=== PATIENT | male | born 1950 | race Caucasian/White ===

== ENCOUNTER 2018-02-21 09:35 | Inpatient (IN) | payer OTHER ==
[2018-02-21 10:31] LABS: ADD MAN DIFF? NO
[2018-02-21 10:32] LABS: WHITE BLOOD COUNT 24.3 10^3/ul (4.8-10.8)
[2018-02-21 10:32] LABS: ABNORMAL IP MESSAGE 1; BASOPHILS % 0.2 % (0.0-2.0); EOSINOPHILS # 0.1 10^3/ul (0.0-0.5); EOSINOPHILS % 0.2 % (0.0-7.0); HEMATOCRIT 23.1 % (42.0-52.0); HEMOGLOBIN 7.6 g/dl (14.0-18.0); LYMPHOCYTES # 0.7 10^3/ul (0.8-2.9); LYMPHOCYTES % 2.8 % (15.0-51.0); MEAN CORPUSCULAR HEMOGLOBIN 27.7 pg (29.0-33.0); MEAN CORPUSCULAR HGB CONC 32.9 g/dl (32.0-37.0); MEAN CORPUSCULAR VOLUME 84.3 fl (82.0-101.0); MEAN PLATELET VOLUME 11.5 fl (7.4-10.4); MONOCYTE # 1.1 10^3/ul (0.3-0.9); MONOCYTES % 4.4 % (0.0-11.0); NEUTROPHIL # 21.9 10^3/ul (1.6-7.5); NEUTROPHILS % 89.9 % (39.0-77.0); PLATELET COUNT 303 10^3/UL (140-415); POSITIVE DIFF @See below; RED BLOOD COUNT 2.74 10^6/ul (4.70-6.10); RED CELL DISTRIBUTION WIDTH 15.1 % (11.5-14.5)
[2018-02-21 10:36] LABS: LACTIC ACID 1.6 mmol/L (0.5-2.0)
[2018-02-21 10:39] LABS: ALANINE AMINOTRANSFERASE 37 IU/L (13-69); ALBUMIN 2.8 g/dl (3.3-4.9); ALBUMIN/GLOBULIN RATIO 0.93; ALKALINE PHOSPHATASE 301 IU/L (42-121); ANION GAP 21 (8-16); ASPARTATE AMINO TRANSFERASE 26 IU/L (15-46); BLOOD UREA NITROGEN 51 mg/dl (7-20); CALCIUM 8.8 mg/dl (8.4-10.2); CARBON DIOXIDE 16 mmol/L (21-31); CHLORIDE 92 mmol/L (97-110); CREATININE 2.81 mg/dl (0.61-1.24); POTASSIUM 5.5 mmol/L (3.5-5.1); SODIUM 123 mmol/L (135-144); TOTAL PROTEIN 5.8 g/dl (6.1-8.1)
[2018-02-21 10:49] LABS: GLUCOSE 762 mg/dl (70-220)
[2018-02-21 10:53] LABS: INR 1.42; PROTIME 17.6 Sec (11.9-14.9); PT RATIO 1.4
[2018-02-21] MEDS: INSULIN HUMAN REGULAR 100 UNIT in SOD CHLORIDE 0.9% 99 ML IV (11:20)
[2018-02-21] MEDS: ACCU-CHEK XX ×24 (11:30→23:30)
[2018-02-21] MEDS: SODIUM CHLORIDE 0.9% 1L BAG IV* (11:53)
[2018-02-21] MEDS: CEFEPIME 1GM/50 ML (PMX) 50 ML IVPB (11:54)
[2018-02-21] MEDS: SOD CHLORIDE 0.9% 1,000 ML IV (12:43)
[2018-02-21] MEDS: VANCOMYCIN 1 GM (PMX) 250 ML IVPB (12:44)
[2018-02-21 12:46] LABS: AADO2 Arterial 35.8 mmHg (7.0-24.0); Arterial Base Excess -8.2 mmol/L (-3.0-3); Arterial Blood Gas Oxygen Sat 93.6 mmHG (95.0-98.0); Arterial COHb 0.1 % (0.0-3.0); Arterial Fraction of Oxyhgb 93.1 % (93.0-99.0); Arterial HCO3 17.3 mmol/L (22.0-26.0); Arterial MetHb 0.4 % (0.0-1.5); Arterial Total Hemglobin 8.7 g/dl (12.0-18.0); Arterial pCO2 35.2 mmhg (35-45); MODE ROOM AIR; Site Right Brachial
[2018-02-21] MEDS ORDERED: DEXTROSE 50% 50 ML SYRINGE IV ×2 (13:00)
[2018-02-21] MEDS ORDERED: ACETAMINOPHEN 325 MG TAB PO (13:00)
[2018-02-21] MEDS ORDERED: HYPOGLYCEMIA TREATMENT XX (13:00)
[2018-02-21] MEDS ORDERED: ALBUTEROL 0.083% (NEB) 2.5 MG/3 ML AMP NEB (13:00)
[2018-02-21] MEDS ORDERED: MAGNESIUM HYDROXIDE 30ML CUP PO (13:00)
[2018-02-21] MEDS ORDERED: HYDROCODONE/APAP (5/325) TAB PO (13:00)
[2018-02-21] MEDS: LACTATED RINGER'S 1,000 ML IV (13:43)
[2018-02-21 14:22] LABS: ADD UMIC YES; UR ASCORBIC ACID NEGATIVE (NEGATIVE); UR BACTERIA FEW /HPF (NONE SEEN); UR BILIRUBIN (Dip) NEGATIVE (NEGATIVE); UR BLOOD (Dip) 3+ mg/dL (NEGATIVE); UR CLARITY CLOUDY (CLEAR); UR COLOR YELLOW (YELLOW); UR GLUCOSE (Dip) 3+ mg/dL (NEGATIVE); UR KETONES (Dip) NEGATIVE (NEGATIVE); UR LEUKOCYTE ESTERASE (Dip) 3+ Leu/ul (NEGATIVE); UR NITRITE (Dip) NEGATIVE (NEGATIVE); UR RBC 4 /HPF (0-5); UR SPECIFIC GRAVITY (Dip) 1.018 (1.003-1.030); UR TOTAL PROTEIN (Dip) 1+ mg/dl (NEGATIVE); UR UROBILINOGEN (Dip) NEGATIVE (NEGATIVE); UR WBC > 182 /HPF (0-5)
[2018-02-21 14:27] LABS: HEMOGLOBIN A1C 9.2 % (0-5.9)
[2018-02-21 14:33] LABS: LACTIC ACID 1.5 mmol/L (0.5-2.0)
[2018-02-21 14:34] LABS: ANION GAP 17 (8-16); BLOOD UREA NITROGEN 54 mg/dl (7-20); CALCIUM 8.8 mg/dl (8.4-10.2); CARBON DIOXIDE 16 mmol/L (21-31); CHLORIDE 95 mmol/L (97-110); CREATININE 2.92 mg/dl (0.61-1.24); POTASSIUM 5.1 mmol/L (3.5-5.1); SODIUM 123 mmol/L (135-144)
[2018-02-21 14:43] LABS: GLUCOSE 681 mg/dl (70-220)
[2018-02-21 14:51] LABS: C-REACTIVE PROTEIN 24.3 mg/dl (0.0-0.9)
[2018-02-21 16:27] LABS: ERYTHROCYTE SEDIMENTATION RATE 140 mm/Hr (0-20)
[2018-02-21] MEDS: CEFTRIAXONE 1 GM/50 ML (PMX) 50 ML IVPB (19:09)
[2018-02-21 19:15] LABS: IRON 28 ug/dl (35-150)
[2018-02-21 19:17] LABS: ANION GAP 15 (8-16); BLOOD UREA NITROGEN 52 mg/dl (7-20); CALCIUM 8.7 mg/dl (8.4-10.2); CARBON DIOXIDE 16 mmol/L (21-31); CHLORIDE 97 mmol/L (97-110); CREATININE 2.97 mg/dl (0.61-1.24); POTASSIUM 4.6 mmol/L (3.5-5.1); SODIUM 123 mmol/L (135-144)
[2018-02-21 19:23] LABS: GLUCOSE 521 mg/dl (70-220)
[2018-02-21 19:24] LABS: % IRON SATURATION 16 % SAT (22-52); TOTAL IRON BINDING CAPACITY 174 ug/dl (241-421)
[2018-02-21] MEDS ORDERED: FAMOTIDINE 20 MG TAB PO (21:00)
[2018-02-21] MEDS: GUAIFENESIN LA 600 MG TABSR PO (21:18)
[2018-02-21] MEDS: ATORVASTATIN 10 MG TAB PO (21:25)
[2018-02-21 22:38] LABS: ANION GAP 15 (8-16); BLOOD UREA NITROGEN 52 mg/dl (7-20); CALCIUM 8.8 mg/dl (8.4-10.2); CARBON DIOXIDE 17 mmol/L (21-31); CHLORIDE 97 mmol/L (97-110); CREATININE 2.95 mg/dl (0.61-1.24); GLUCOSE 372 mg/dl (70-220); POTASSIUM 4.3 mmol/L (3.5-5.1); SODIUM 125 mmol/L (135-144)
[2018-02-22] MEDS: INSULIN HUMAN REGULAR 100 UNIT in SOD CHLORIDE 0.9% 99 ML IV ×5 (00:32→20:19)
[2018-02-22] MEDS: ACCU-CHEK XX ×33 (00:33→23:12)
[2018-02-22] MEDS: SOD CHLORIDE 0.9% 1,000 ML IV ×3 (01:55→15:35)
[2018-02-22] MEDS: DEXTROSE 5%-0.9% NACL 1,000 ML IV ×4 (02:00→18:11)
[2018-02-22 02:45] LABS: ANION GAP 16 (8-16); BLOOD UREA NITROGEN 54 mg/dl (7-20); CALCIUM 8.9 mg/dl (8.4-10.2); CARBON DIOXIDE 17 mmol/L (21-31); CHLORIDE 101 mmol/L (97-110); CREATININE 2.93 mg/dl (0.61-1.24); GLUCOSE 200 mg/dl (70-220); POTASSIUM 4.3 mmol/L (3.5-5.1); SODIUM 130 mmol/L (135-144)
[2018-02-22 05:31] LABS: ADD MAN DIFF? NO
[2018-02-22 05:35] LABS: ABNORMAL IP MESSAGE 1; BASOPHILS % 0.2 % (0.0-2.0); EOSINOPHILS # 0.1 10^3/ul (0.0-0.5); EOSINOPHILS % 0.3 % (0.0-7.0); HEMATOCRIT 20.5 % (42.0-52.0); LYMPHOCYTES % 4.3 % (15.0-51.0); MEAN CORPUSCULAR HEMOGLOBIN 27.5 pg (29.0-33.0); MEAN CORPUSCULAR HGB CONC 33.2 g/dl (32.0-37.0); MEAN PLATELET VOLUME 10.8 fl (7.4-10.4); MONOCYTE # 1.1 10^3/ul (0.3-0.9); MONOCYTES % 4.8 % (0.0-11.0); NEUTROPHIL # 20.4 10^3/ul (1.6-7.5); NEUTROPHILS % 88.7 % (39.0-77.0); PLATELET COUNT 279 10^3/UL (140-415); POSITIVE DIFF @See below; RED BLOOD COUNT 2.47 10^6/ul (4.70-6.10); RED CELL DISTRIBUTION WIDTH 14.7 % (11.5-14.5)
[2018-02-22] MEDS: SOD CHLORIDE 0.9% 500 ML IV (06:35)
[2018-02-22 06:46] LABS: HEMOGLOBIN 6.8 g/dl (14.0-18.0)
[2018-02-22 06:55] LABS: ANION GAP 14 (8-16); BLOOD UREA NITROGEN 52 mg/dl (7-20); CALCIUM 8.8 mg/dl (8.4-10.2); CARBON DIOXIDE 17 mmol/L (21-31); CHLORIDE 105 mmol/L (97-110); CREATININE 2.98 mg/dl (0.61-1.24); GLUCOSE 156 mg/dl (70-220); POTASSIUM 4.2 mmol/L (3.5-5.1); SODIUM 132 mmol/L (135-144)
[2018-02-22] MEDS: PANTOPRAZOLE (EC) 40 MG TAB PO (07:27)
[2018-02-22 08:34] LABS: ADD MAN DIFF? NO
[2018-02-22 08:39] LABS: ABNORMAL IP MESSAGE 1; BASOPHILS % 0.2 % (0.0-2.0); EOSINOPHILS # 0.1 10^3/ul (0.0-0.5); EOSINOPHILS % 0.4 % (0.0-7.0); HEMATOCRIT 21.6 % (42.0-52.0); HEMOGLOBIN 7.3 g/dl (14.0-18.0); LYMPHOCYTES % 4.1 % (15.0-51.0); MEAN CORPUSCULAR HEMOGLOBIN 28.3 pg (29.0-33.0); MEAN CORPUSCULAR HGB CONC 33.8 g/dl (32.0-37.0); MEAN CORPUSCULAR VOLUME 83.7 fl (82.0-101.0); MEAN PLATELET VOLUME 10.6 fl (7.4-10.4); MONOCYTE # 1.3 10^3/ul (0.3-0.9); MONOCYTES % 5.2 % (0.0-11.0); NEUTROPHIL # 21.7 10^3/ul (1.6-7.5); PLATELET COUNT 289 10^3/UL (140-415); POSITIVE DIFF @See below; RED BLOOD COUNT 2.58 10^6/ul (4.70-6.10)
[2018-02-22 08:39] LABS: WHITE BLOOD COUNT 24.4 10^3/ul (4.8-10.8)
[2018-02-22] MEDS ORDERED: DEXTROSE 50% 50 ML SYRINGE IV ×6 (09:30→16:00)
[2018-02-22] MEDS: GUAIFENESIN LA 600 MG TABSR PO ×2 (10:49→20:20)
[2018-02-22] MEDS ORDERED: PENDING SANTYL ORDER FOR WOUND CARE XX (11:00)
[2018-02-22] MEDS ORDERED: COLLAGENASE 30 GM TUBE TOP (11:30)
[2018-02-22] MEDS: ONDANSETRON 4 MG INJ IV (12:10)
[2018-02-22] MEDS ORDERED: GLUCOSE GEL 15 GRAM TUBE BUCCAL (12:30)
[2018-02-22] MEDS ORDERED: GLUCAGON 1 MG INJ IM (12:30)
[2018-02-22] MEDS ORDERED: GLUCOSE GEL 15 GRAM TUBE PO ×2 (12:30)
[2018-02-22 13:07] LABS: ANION GAP 22 (8-16); BLOOD UREA NITROGEN 52 mg/dl (7-20); CALCIUM 8.9 mg/dl (8.4-10.2); CARBON DIOXIDE 13 mmol/L (21-31); CHLORIDE 103 mmol/L (97-110); CREATININE 3.23 mg/dl (0.61-1.24); GLUCOSE 198 mg/dl (70-220); POTASSIUM 4.7 mmol/L (3.5-5.1); SODIUM 133 mmol/L (135-144)
[2018-02-22] MEDS: COLLAGENASE 30 GM TUBE TOP (13:55)
[2018-02-22] MEDS: INSULIN GLARGINE [LANtus] 3 ML PEN SC (13:56)
[2018-02-22 14:07] LABS: SODIUM,URINE RANDOM 51 mmol/L (30-90)
[2018-02-22 14:07] LABS: POTASSIUM,URINE RANDOM 34.5 mmol/L (25-125)
[2018-02-22 14:32] LABS: OSMOLALITY,URINE 331 mOsm/kg (250-1200)
[2018-02-22] MEDS ORDERED: INSULIN ASPART [NOVOLOG] 3 ML PEN SC (17:35)
[2018-02-22] MEDS ORDERED: SOD CHLORIDE 0.45% 1,000 ML IV (19:00)
[2018-02-22 19:12] LABS: ANION GAP 17 (8-16); BLOOD UREA NITROGEN 55 mg/dl (7-20); CALCIUM 8.7 mg/dl (8.4-10.2); CARBON DIOXIDE 14 mmol/L (21-31); CHLORIDE 105 mmol/L (97-110); GLUCOSE 213 mg/dl (70-220); POTASSIUM 4.8 mmol/L (3.5-5.1); SODIUM 131 mmol/L (135-144)
[2018-02-22] MEDS: CEFTRIAXONE 1 GM/50 ML (PMX) 50 ML IVPB (19:27)
[2018-02-22] MEDS: DEXTROSE 5%-0.45% NACL 1,000 ML IV (20:14)
[2018-02-22] MEDS: CITRIC ACID/SODIUM CITRATE 15 ML CUP PO (20:19)
[2018-02-22] MEDS: ATORVASTATIN 10 MG TAB PO (20:20)
[2018-02-22 22:22] LABS: ANION GAP 14 (8-16); BLOOD UREA NITROGEN 55 mg/dl (7-20); CALCIUM 8.9 mg/dl (8.4-10.2); CARBON DIOXIDE 15 mmol/L (21-31); CHLORIDE 106 mmol/L (97-110); CREATININE 3.54 mg/dl (0.61-1.24); GLUCOSE 218 mg/dl (70-220); POTASSIUM 4.3 mmol/L (3.5-5.1); SODIUM 131 mmol/L (135-144)
[2018-02-23] MEDS: ACCU-CHEK XX ×11 (01:10→10:18)
[2018-02-23] MEDS ORDERED: ACCU-CHEK XX (02:00)
[2018-02-23 02:37] LABS: ANION GAP 22 (8-16); BLOOD UREA NITROGEN 55 mg/dl (7-20); CALCIUM 8.9 mg/dl (8.4-10.2); CARBON DIOXIDE 16 mmol/L (21-31); CHLORIDE 104 mmol/L (97-110); CREATININE 3.75 mg/dl (0.61-1.24); GLUCOSE 149 mg/dl (70-220); POTASSIUM 4.5 mmol/L (3.5-5.1); SODIUM 137 mmol/L (135-144)
[2018-02-23] MEDS: INSULIN HUMAN REGULAR 100 UNIT in SOD CHLORIDE 0.9% 99 ML IV ×3 (03:16→09:00)
[2018-02-23] MEDS: PANTOPRAZOLE (EC) 40 MG TAB PO (06:09)
[2018-02-23] MEDS: DEXTROSE 5%-0.45% NACL 1,000 ML IV (06:10)
[2018-02-23 06:22] LABS: ADD MAN DIFF? NO
[2018-02-23 06:36] LABS: WHITE BLOOD COUNT 21.8 10^3/ul (4.8-10.8)
[2018-02-23 06:36] LABS: ABNORMAL IP MESSAGE 1; BASOPHILS % 0.1 % (0.0-2.0); EOSINOPHILS # 0.1 10^3/ul (0.0-0.5); EOSINOPHILS % 0.2 % (0.0-7.0); HEMATOCRIT 20.1 % (42.0-52.0); LYMPHOCYTES % 4.7 % (15.0-51.0); MEAN CORPUSCULAR HEMOGLOBIN 27.9 pg (29.0-33.0); MEAN CORPUSCULAR HGB CONC 32.3 g/dl (32.0-37.0); MEAN CORPUSCULAR VOLUME 86.3 fl (82.0-101.0); MEAN PLATELET VOLUME 11.5 fl (7.4-10.4); MONOCYTE # 1.2 10^3/ul (0.3-0.9); MONOCYTES % 5.6 % (0.0-11.0); NEUTROPHIL # 18.6 10^3/ul (1.6-7.5); NEUTROPHILS % 85.6 % (39.0-77.0); PLATELET COUNT 290 10^3/UL (140-415); POSITIVE DIFF @See below; RED BLOOD COUNT 2.33 10^6/ul (4.70-6.10); RED CELL DISTRIBUTION WIDTH 15.7 % (11.5-14.5)
[2018-02-23 06:50] LABS: ANION GAP 14 (8-16); BLOOD UREA NITROGEN 57 mg/dl (7-20); CALCIUM 9.2 mg/dl (8.4-10.2); CARBON DIOXIDE 17 mmol/L (21-31); CHLORIDE 107 mmol/L (97-110); CREATININE 3.68 mg/dl (0.61-1.24); GLUCOSE 112 mg/dl (70-220); HEMOGLOBIN 6.5 g/dl (14.0-18.0); POTASSIUM 4.4 mmol/L (3.5-5.1); SODIUM 134 mmol/L (135-144)
[2018-02-23 07:01] LABS: PHOSPHORUS 2.6 mg/dl (2.5-4.9)
[2018-02-23] MEDS: GUAIFENESIN LA 600 MG TABSR PO ×2 (09:00→20:28)
[2018-02-23] MEDS: CITRIC ACID/SODIUM CITRATE 15 ML CUP PO ×3 (09:00→20:29)
[2018-02-23] MEDS: COLLAGENASE 30 GM TUBE TOP (09:00)
[2018-02-23 09:43] LABS: ANION GAP 14 (8-16); BLOOD UREA NITROGEN 56 mg/dl (7-20); CALCIUM 8.9 mg/dl (8.4-10.2); CARBON DIOXIDE 17 mmol/L (21-31); CHLORIDE 108 mmol/L (97-110); CREATININE 3.84 mg/dl (0.61-1.24); GLUCOSE 64 mg/dl (70-220); POTASSIUM 4.3 mmol/L (3.5-5.1); SODIUM 135 mmol/L (135-144)
[2018-02-23 09:47] LABS: ANISOCYTOSIS 2+ (0-0); BAND NEUTROPHILS #M 1.5 10^3/ul (0.0-0.6); BAND NEUTROPHILS % (M) 7 % (0-4); BASOPHIL #M 0.8 10^3/ul (0.0-0.0); BASOPHILS % (M) 4 % (0-2); LYMPHOCYTES #M 0.8 10^3/ul (0.8-2.9); LYMPHOCYTES % (M) 4 % (15-51); MICROCYTOSIS 1+ (0-0); MONOCYTE #M 0.2 10^3/ul (0.3-0.9); MONOCYTES % (M) 1 % (0-11); PLATELET ESTIMATE NORMAL; POIKILOCYTOSIS 2+ (0-0); POLYCHROMASIA 3+ (0-0); SEG NEUT #M 18.6 10^3/ul (1.6-7.5); SEGMENTED NEUTROPHILS (M) % 84 % (39-77); SMUDGE%M 6 % (0-0)
[2018-02-23] MEDS: SOD CHLORIDE 0.9% 1,000 ML IV (11:19)
[2018-02-23] MEDS: INSULIN GLARGINE [LANtus] 3 ML PEN SC (11:30)
[2018-02-23] MEDS: INSULIN ASPART [NOVOLOG] 3 ML PEN SC ×5 (11:30→20:31)
[2018-02-23 11:45] LABS: ADD MAN DIFF? NO
[2018-02-23 11:49] LABS: WHITE BLOOD COUNT 20.6 10^3/ul (4.8-10.8)
[2018-02-23 11:49] LABS: ABNORMAL IP MESSAGE 1; BASOPHILS % 0.1 % (0.0-2.0); EOSINOPHILS # 0.1 10^3/ul (0.0-0.5); EOSINOPHILS % 0.3 % (0.0-7.0); HEMATOCRIT 19.4 % (42.0-52.0); LYMPHOCYTES # 1.1 10^3/ul (0.8-2.9); LYMPHOCYTES % 5.2 % (15.0-51.0); MEAN CORPUSCULAR HEMOGLOBIN 28.1 pg (29.0-33.0); MEAN CORPUSCULAR HGB CONC 32.5 g/dl (32.0-37.0); MEAN CORPUSCULAR VOLUME 86.6 fl (82.0-101.0); MEAN PLATELET VOLUME 10.9 fl (7.4-10.4); MONOCYTE # 1.7 10^3/ul (0.3-0.9); MONOCYTES % 8.4 % (0.0-11.0); NEUTROPHIL # 16.8 10^3/ul (1.6-7.5); NEUTROPHILS % 81.2 % (39.0-77.0); PLATELET COUNT 289 10^3/UL (140-415); POSITIVE DIFF @See below; RED BLOOD COUNT 2.24 10^6/ul (4.70-6.10); RED CELL DISTRIBUTION WIDTH 15.8 % (11.5-14.5)
[2018-02-23 11:58] LABS: HEMOGLOBIN 6.3 g/dl (14.0-18.0)
[2018-02-23 12:43] LABS: ANION GAP 14 (8-16); BLOOD UREA NITROGEN 58 mg/dl (7-20); CALCIUM 9.1 mg/dl (8.4-10.2); CARBON DIOXIDE 17 mmol/L (21-31); CHLORIDE 107 mmol/L (97-110); CREATININE 3.91 mg/dl (0.61-1.24); GLUCOSE 81 mg/dl (70-220); POTASSIUM 4.8 mmol/L (3.5-5.1); SODIUM 133 mmol/L (135-144)
[2018-02-23] MEDS: MEROPENEM 1 GM/50ML(PMX) 50 ML IVPB ×2 (13:00→21:18)
[2018-02-23] MEDS: SOD CHLORIDE 0.9% 250 ML IV* (15:30)
[2018-02-23 15:47] LABS: IMMEDIATE SPIN CROSSMATCH 1 2
[2018-02-23] MEDS: LACTATED RINGER'S 1,000 ML IV (16:00)
[2018-02-23 16:26] LABS: CREATININE, RANDOM URINE 81 mg/dL (20-370); MICROALBUMIN/CREATININE RATIO 123 (<30)
[2018-02-23 17:27] LABS: ANION GAP 16 (8-16); BLOOD UREA NITROGEN 61 mg/dl (7-20); CARBON DIOXIDE 16 mmol/L (21-31); CHLORIDE 105 mmol/L (97-110); CREATININE 4.08 mg/dl (0.61-1.24); GLUCOSE 186 mg/dl (70-220); POTASSIUM 5.3 mmol/L (3.5-5.1); SODIUM 132 mmol/L (135-144)
[2018-02-23 17:56] LABS: HEPATITIS B SURFACE ANTIGEN NEGATIVE (NEGATIVE)
[2018-02-23 18:13] LABS: HEPATITIS C VIRAL ANTIBODY NEGATIVE (NEGATIVE)
[2018-02-23] MEDS: SOD FERRIC GLUC COMPLX 125 MG in SOD CHLORIDE 0.9% 100 ML IVPB (18:29)
[2018-02-23] MEDS: ATORVASTATIN 10 MG TAB PO (20:28)
[2018-02-24] MEDS: morphine 2 MG INJ IV (00:43)
[2018-02-24 01:59] LABS: ANION GAP 13 (8-16); BLOOD UREA NITROGEN 63 mg/dl (7-20); CARBON DIOXIDE 18 mmol/L (21-31); CHLORIDE 107 mmol/L (97-110); CREATININE 3.76 mg/dl (0.61-1.24); GLUCOSE 193 mg/dl (70-220); POTASSIUM 5.2 mmol/L (3.5-5.1); SODIUM 133 mmol/L (135-144)
[2018-02-24] MEDS: ACCU-CHEK XX ×2 (03:00→19:55)
[2018-02-24] MEDS: PANTOPRAZOLE (EC) 40 MG TAB PO (06:32)
[2018-02-24 07:03] LABS: ADD MAN DIFF? NO
[2018-02-24 07:15] LABS: BASOPHILS % 0.2 % (0.0-2.0); EOSINOPHILS # 0.1 10^3/ul (0.0-0.5); EOSINOPHILS % 0.6 % (0.0-7.0); HEMATOCRIT 24.8 % (42.0-52.0); HEMOGLOBIN 8.2 g/dl (14.0-18.0); LYMPHOCYTES # 1.2 10^3/ul (0.8-2.9); LYMPHOCYTES % 6.3 % (15.0-51.0); MEAN CORPUSCULAR HGB CONC 33.1 g/dl (32.0-37.0); MEAN CORPUSCULAR VOLUME 84.6 fl (82.0-101.0); MONOCYTE # 1.3 10^3/ul (0.3-0.9); MONOCYTES % 6.9 % (0.0-11.0); NEUTROPHIL # 15.8 10^3/ul (1.6-7.5); NEUTROPHILS % 81.1 % (39.0-77.0); PLATELET COUNT 347 10^3/UL (140-415); RED BLOOD COUNT 2.93 10^6/ul (4.70-6.10); RED CELL DISTRIBUTION WIDTH 15.4 % (11.5-14.5)
[2018-02-24 07:15] LABS: WHITE BLOOD COUNT 19.4 10^3/ul (4.8-10.8)
[2018-02-24 07:40] LABS: ANION GAP 15 (8-16); BLOOD UREA NITROGEN 65 mg/dl (7-20); CARBON DIOXIDE 19 mmol/L (21-31); CHLORIDE 105 mmol/L (97-110); CREATININE 3.65 mg/dl (0.61-1.24); GLUCOSE 178 mg/dl (70-220); POTASSIUM 5.3 mmol/L (3.5-5.1); SODIUM 134 mmol/L (135-144)
[2018-02-24 07:41] LABS: MAGNESIUM 2.1 mg/dl (1.7-2.5)
[2018-02-24 07:42] LABS: PHOSPHORUS 4.5 mg/dl (2.5-4.9)
[2018-02-24] MEDS: GUAIFENESIN LA 600 MG TABSR PO ×2 (08:17→20:42)
[2018-02-24] MEDS: CITRIC ACID/SODIUM CITRATE 15 ML CUP PO ×3 (08:17→20:42)
[2018-02-24] MEDS: INSULIN ASPART [NOVOLOG] 3 ML PEN SC ×7 (08:20→20:41)
[2018-02-24] MEDS: LACTATED RINGER'S 1,000 ML IV ×2 (08:21→12:00)
[2018-02-24] MEDS: MEROPENEM 1 GM/50ML(PMX) 50 ML IVPB ×2 (08:21→20:55)
[2018-02-24] MEDS: INSULIN GLARGINE [LANtus] 3 ML PEN SC (08:25)
[2018-02-24] MEDS: COLLAGENASE 30 GM TUBE TOP (09:00)
[2018-02-24] MEDS: NA POLYST SULFON 15 GM/60 ML BTL PO (12:21)
[2018-02-24 15:51] LABS: CREATININE, RANDOM URINE 405 mg/dL (20-370); MICROALBUMIN 31.3 mg/dL; MICROALBUMIN/CREATININE RATIO 77 (<30)
[2018-02-24] MEDS: SOD FERRIC GLUC COMPLX 125 MG in SOD CHLORIDE 0.9% 100 ML IVPB (16:31)
[2018-02-24] MEDS: LACTATED RINGER'S 500 ML IV (18:58)
[2018-02-24] MEDS: ATORVASTATIN 10 MG TAB PO (20:42)
[2018-02-25] MEDS: morphine 2 MG INJ IV (01:11)
[2018-02-25] MEDS: LACTATED RINGER'S 1,000 ML IV ×3 (01:37→12:33)
[2018-02-25] MEDS: ACCU-CHEK XX ×7 (04:38→19:55)
[2018-02-25] MEDS: HYDROCODONE/APAP (5/325) TAB PO (04:54)
[2018-02-25] MEDS: PANTOPRAZOLE (EC) 40 MG TAB PO (06:36)
[2018-02-25 07:48] LABS: ADD MAN DIFF? NO
[2018-02-25 07:51] LABS: BASOPHILS % 0.2 % (0.0-2.0); EOSINOPHILS # 0.2 10^3/ul (0.0-0.5); EOSINOPHILS % 0.8 % (0.0-7.0); HEMATOCRIT 24.5 % (42.0-52.0); HEMOGLOBIN 8.1 g/dl (14.0-18.0); LYMPHOCYTES # 1.3 10^3/ul (0.8-2.9); LYMPHOCYTES % 6.7 % (15.0-51.0); MEAN CORPUSCULAR HEMOGLOBIN 28.8 pg (29.0-33.0); MEAN CORPUSCULAR HGB CONC 33.1 g/dl (32.0-37.0); MEAN CORPUSCULAR VOLUME 87.2 fl (82.0-101.0); MEAN PLATELET VOLUME 10.6 fl (7.4-10.4); MONOCYTE # 1.4 10^3/ul (0.3-0.9); MONOCYTES % 6.9 % (0.0-11.0); NEUTROPHIL # 16.1 10^3/ul (1.6-7.5); NEUTROPHILS % 80.9 % (39.0-77.0); PLATELET COUNT 413 10^3/UL (140-415); RED BLOOD COUNT 2.81 10^6/ul (4.70-6.10); RED CELL DISTRIBUTION WIDTH 15.8 % (11.5-14.5)
[2018-02-25 07:51] LABS: WHITE BLOOD COUNT 19.9 10^3/ul (4.8-10.8)
[2018-02-25 08:12] LABS: ANION GAP 16 (8-16); BLOOD UREA NITROGEN 63 mg/dl (7-20); CALCIUM 8.9 mg/dl (8.4-10.2); CARBON DIOXIDE 20 mmol/L (21-31); CHLORIDE 105 mmol/L (97-110); CREATININE 2.94 mg/dl (0.61-1.24); GLUCOSE 148 mg/dl (70-220); MAGNESIUM 2.1 mg/dl (1.7-2.5); POTASSIUM 4.8 mmol/L (3.5-5.1); SODIUM 136 mmol/L (135-144)
[2018-02-25] MEDS: INSULIN ASPART [NOVOLOG] 3 ML PEN SC ×7 (08:33→20:36)
[2018-02-25] MEDS: INSULIN GLARGINE [LANtus] 3 ML PEN SC (08:35)
[2018-02-25] MEDS: CITRIC ACID/SODIUM CITRATE 15 ML CUP PO ×3 (08:35→20:37)
[2018-02-25] MEDS: GUAIFENESIN LA 600 MG TABSR PO ×2 (08:36→20:37)
[2018-02-25] MEDS: COLLAGENASE 30 GM TUBE TOP (08:36)
[2018-02-25] MEDS: MEROPENEM 1 GM/50ML(PMX) 50 ML IVPB ×2 (08:37→20:37)
[2018-02-25] MEDS: SOD FERRIC GLUC COMPLX 125 MG in SOD CHLORIDE 0.9% 100 ML IVPB (17:05)
[2018-02-25] MEDS: ATORVASTATIN 10 MG TAB PO (20:37)
[2018-02-26] MEDS: ACCU-CHEK XX ×7 (02:00→19:55)
[2018-02-26] MEDS: LACTATED RINGER'S 1,000 ML IV ×3 (02:43→23:01)
[2018-02-26] MEDS: morphine 2 MG INJ IV (02:44)
[2018-02-26] MEDS: PANTOPRAZOLE (EC) 40 MG TAB PO (06:49)
[2018-02-26 07:02] LABS: ADD MAN DIFF? NO
[2018-02-26 07:14] LABS: BASOPHILS % 0.1 % (0.0-2.0); EOSINOPHILS # 0.1 10^3/ul (0.0-0.5); EOSINOPHILS % 0.6 % (0.0-7.0); HEMATOCRIT 25.8 % (42.0-52.0); HEMOGLOBIN 8.2 g/dl (14.0-18.0); LYMPHOCYTES # 1.5 10^3/ul (0.8-2.9); LYMPHOCYTES % 6.9 % (15.0-51.0); MEAN CORPUSCULAR HEMOGLOBIN 27.5 pg (29.0-33.0); MEAN CORPUSCULAR HGB CONC 31.8 g/dl (32.0-37.0); MEAN CORPUSCULAR VOLUME 86.6 fl (82.0-101.0); MEAN PLATELET VOLUME 10.4 fl (7.4-10.4); MONOCYTE # 1.4 10^3/ul (0.3-0.9); MONOCYTES % 6.4 % (0.0-11.0); NEUTROPHIL # 17.7 10^3/ul (1.6-7.5); NEUTROPHILS % 81.9 % (39.0-77.0); PLATELET COUNT 455 10^3/UL (140-415); RED BLOOD COUNT 2.98 10^6/ul (4.70-6.10); RED CELL DISTRIBUTION WIDTH 15.6 % (11.5-14.5)
[2018-02-26 07:14] LABS: WHITE BLOOD COUNT 21.7 10^3/ul (4.8-10.8)
[2018-02-26 07:29] LABS: URIC ACID 8.1 mg/dl (3.1-7.9)
[2018-02-26 07:31] LABS: ANION GAP 12 (8-16); BLOOD UREA NITROGEN 58 mg/dl (7-20); CALCIUM 8.9 mg/dl (8.4-10.2); CARBON DIOXIDE 24 mmol/L (21-31); CHLORIDE 108 mmol/L (97-110); CREATININE 2.31 mg/dl (0.61-1.24); GLUCOSE 127 mg/dl (70-220); POTASSIUM 4.8 mmol/L (3.5-5.1); SODIUM 139 mmol/L (135-144)
[2018-02-26] MEDS: GUAIFENESIN LA 600 MG TABSR PO ×2 (08:13→20:12)
[2018-02-26] MEDS: CITRIC ACID/SODIUM CITRATE 15 ML CUP PO ×3 (08:14→20:58)
[2018-02-26] MEDS: MEROPENEM 1 GM/50ML(PMX) 50 ML IVPB ×2 (08:15→20:11)
[2018-02-26] MEDS: INSULIN ASPART [NOVOLOG] 3 ML PEN SC ×7 (08:20→20:06)
[2018-02-26] MEDS: INSULIN GLARGINE [LANtus] 3 ML PEN SC (08:22)
[2018-02-26] MEDS: COLLAGENASE 30 GM TUBE TOP (08:24)
[2018-02-26] MEDS: LACTATED RINGER'S 500 ML IV (14:09)
[2018-02-26] MEDS: hydrALAzine 20 MG INJ IV (16:43)
[2018-02-26] MEDS: EPOETIN 10000 UNITS/ML (NON ESRD/NON ONCOLOGY) SC (19:03)
[2018-02-26] MEDS: ATORVASTATIN 10 MG TAB PO (20:12)
[2018-02-26] MEDS: EPOETIN ALFA 1,000 UNITS/0.1 ML VIAL SC (20:58)
[2018-02-27] MEDS: ACCU-CHEK XX ×5 (02:00→13:50)
[2018-02-27] MEDS: hydrALAzine 20 MG INJ IV (03:56)
[2018-02-27] MEDS: PANTOPRAZOLE (EC) 40 MG TAB PO (06:26)
[2018-02-27 07:27] LABS: ADD MAN DIFF? NO
[2018-02-27 07:32] LABS: WHITE BLOOD COUNT 19.6 10^3/ul (4.8-10.8)
[2018-02-27 07:32] LABS: ABNORMAL IP MESSAGE 1; BASOPHIL # 0.1 10^3/ul (0.0-0.1); BASOPHILS % 0.3 % (0.0-2.0); EOSINOPHILS # 0.1 10^3/ul (0.0-0.5); EOSINOPHILS % 0.6 % (0.0-7.0); HEMATOCRIT 26.8 % (42.0-52.0); HEMOGLOBIN 8.6 g/dl (14.0-18.0); LYMPHOCYTES # 1.6 10^3/ul (0.8-2.9); LYMPHOCYTES % 8.1 % (15.0-51.0); MEAN CORPUSCULAR HGB CONC 32.1 g/dl (32.0-37.0); MEAN CORPUSCULAR VOLUME 87.3 fl (82.0-101.0); MEAN PLATELET VOLUME 9.9 fl (7.4-10.4); MONOCYTE # 1.1 10^3/ul (0.3-0.9); MONOCYTES % 5.7 % (0.0-11.0); NEUTROPHIL # 15.7 10^3/ul (1.6-7.5); NEUTROPHILS % 80.2 % (39.0-77.0); PLATELET COUNT 424 10^3/UL (140-415); POSITIVE DIFF @See below; RED BLOOD COUNT 3.07 10^6/ul (4.70-6.10); RED CELL DISTRIBUTION WIDTH 15.1 % (11.5-14.5)
[2018-02-27] MEDS: INSULIN ASPART [NOVOLOG] 3 ML PEN SC ×4 (07:55→12:07)
[2018-02-27 08:03] LABS: ANION GAP 14 (8-16); BLOOD UREA NITROGEN 49 mg/dl (7-20); CALCIUM 8.6 mg/dl (8.4-10.2); CARBON DIOXIDE 25 mmol/L (21-31); CHLORIDE 104 mmol/L (97-110); CREATININE 1.84 mg/dl (0.61-1.24); GLUCOSE 111 mg/dl (70-220); POTASSIUM 4.6 mmol/L (3.5-5.1); SODIUM 138 mmol/L (135-144)
[2018-02-27] MEDS: GUAIFENESIN LA 600 MG TABSR PO (08:17)
[2018-02-27] MEDS: CITRIC ACID/SODIUM CITRATE 15 ML CUP PO (08:17)
[2018-02-27] MEDS: MEROPENEM 1 GM/50ML(PMX) 50 ML IVPB (08:17)
[2018-02-27] MEDS: INSULIN GLARGINE [LANtus] 3 ML PEN SC (08:19)
[2018-02-27] MEDS: COLLAGENASE 30 GM TUBE TOP (08:21)
[2018-02-27] MEDS: TERAZOSIN 1 MG CAP PO (11:46)
[2018-02-27] MEDS: TAMSULOSIN (SR) 0.4 MG CAP PO (11:47)
[2018-02-27 17:17] LABS: PTH CALCIUM 8.3 mg/dL (8.6-10.3)
[2018-02-27] MEDS ORDERED: TAMSULOSIN (SR) 0.4 MG CAP PO (21:00)
[2018-02-27] MEDS ORDERED: TERAZOSIN 1 MG CAP PO (21:00)
[2018-03-02 06:46] LABS: PTH INTACT 16 pg/mL (14-64)
== END 2018-02-27 17:00 | disposition home or self-care (01) | DRG 871 ==
LOC: ICU 12:47 → E/R 09:35 → TEL 02-23 21:59
PROC: 30233N1 Transfusion of Nonautologous Red Blood Cells into Peripheral Vein, Percutaneous Approach (ICD-10-PCS; principal; 2018-02-23)
DX: A41.9 Sepsis, unspecified organism (principal); E13.10 Other specified diabetes mellitus with ketoacidosis without coma; E11.10 Type 2 diabetes mellitus with ketoacidosis without coma; N17.0 Acute kidney failure with tubular necrosis; N39.0 Urinary tract infection, site not specified; E87.1 Hypo-osmolality and hyponatremia; I13.0 Hypertensive heart and chronic kidney disease with heart failure and stage 1 through stage 4 chronic kidney disease, or unspecified chronic kidney disease; E87.2 Acidosis; L02.611 Cutaneous abscess of right foot; L97.529 Non-pressure chronic ulcer of other part of left foot with unspecified severity; E11.22 Type 2 diabetes mellitus with diabetic chronic kidney disease; E11.65 Type 2 diabetes mellitus with hyperglycemia; I50.9 Heart failure, unspecified; E11.621 Type 2 diabetes mellitus with foot ulcer; N18.3 Chronic kidney disease, stage 3 (moderate); E13.621 Other specified diabetes mellitus with foot ulcer; E11.610 Type 2 diabetes mellitus with diabetic neuropathic arthropathy; E87.5 Hyperkalemia; E79.0 Hyperuricemia without signs of inflammatory arthritis and tophaceous disease; J06.9 Acute upper respiratory infection, unspecified; B96.20 Unspecified Escherichia coli [E. coli] as the cause of diseases classified elsewhere; D63.1 Anemia in chronic kidney disease
CPT/HCPCS: 36430; 36600; 71045; 73630-LT; 76775; 80048; 80053; 81001; 82043; 82306; 82533; 82803; 82962; 83036; 83540; 83605; 83735; 83935; 83970; 84100; 84133; 84300; 84484; 84560; 85025; 85610; 85651; 85730; 86140; 86803; 86850; 86900; 86901; 86920; 87040; 87081; 87086; 87340; 92610; 93005; 96365; 96366; 96375; 96376; 97116; 97162; 97530; 99291-25

== ENCOUNTER 2018-03-23 06:15 | Inpatient (IN) | payer OTHER ==
[2018-03-23] MEDS: VANCOMYCIN 1 GM (PMX) 250 ML IVPB (06:58)
[2018-03-23] MEDS: SOD CHLORIDE 0.9% 1,000 ML IV ×2 (06:58→07:43)
[2018-03-23] MEDS ORDERED: CEFTRIAXONE 1 GM INJ IM (07:00)
[2018-03-23 07:19] LABS: ADD MAN DIFF? NO
[2018-03-23 07:26] LABS: WHITE BLOOD COUNT 18.4 10^3/ul (4.8-10.8)
[2018-03-23 07:26] LABS: BASOPHILS % 0.1 % (0.0-2.0); EOSINOPHILS # 0.2 10^3/ul (0.0-0.5); EOSINOPHILS % 1.3 % (0.0-7.0); HEMATOCRIT 22.7 % (42.0-52.0); LYMPHOCYTES # 1.9 10^3/ul (0.8-2.9); LYMPHOCYTES % 10.3 % (15.0-51.0); MEAN CORPUSCULAR HEMOGLOBIN 27.2 pg (29.0-33.0); MEAN CORPUSCULAR HGB CONC 30.8 g/dl (32.0-37.0); MEAN CORPUSCULAR VOLUME 88.3 fl (82.0-101.0); MEAN PLATELET VOLUME 9.7 fl (7.4-10.4); MONOCYTES % 5.4 % (0.0-11.0); NEUTROPHIL # 14.5 10^3/ul (1.6-7.5); NEUTROPHILS % 78.7 % (39.0-77.0); PLATELET COUNT 316 10^3/UL (140-415); RED BLOOD COUNT 2.57 10^6/ul (4.70-6.10); RED CELL DISTRIBUTION WIDTH 14.6 % (11.5-14.5)
[2018-03-23] MEDS: SOD CHLORIDE 0.9% 500 ML IV (07:39)
[2018-03-23 07:43] LABS: ALANINE AMINOTRANSFERASE 19 IU/L (13-69); ALBUMIN 3.2 g/dl (3.3-4.9); ALBUMIN/GLOBULIN RATIO 0.74; ALKALINE PHOSPHATASE 265 IU/L (42-121); ANION GAP 13 (8-16); ASPARTATE AMINO TRANSFERASE 10 IU/L (15-46); BLOOD UREA NITROGEN 44 mg/dl (7-20); CALCIUM 9.5 mg/dl (8.4-10.2); CARBON DIOXIDE 22 mmol/L (21-31); CHLORIDE 107 mmol/L (97-110); CREATININE 3.13 mg/dl (0.61-1.24); GLUCOSE 93 mg/dl (70-220); LIPASE 89 U/L (23-300); SODIUM 135 mmol/L (135-144); TOTAL PROTEIN 7.5 g/dl (6.1-8.1)
[2018-03-23] MEDS: PIPER-TAZO 3.375 GM IV (PMX) 100 ML IVPB ×2 (07:43→12:50)
[2018-03-23 07:49] LABS: POTASSIUM 6.8 mmol/L (3.5-5.1)
[2018-03-23] MEDS ORDERED: ALBUTEROL 0.5% (NEB) 2.5 MG/0.5 ML AMP (07:55)
[2018-03-23 08:02] LABS: ADD UMIC YES; UR ASCORBIC ACID 20 mg/dL (NEGATIVE); UR BACTERIA FEW /HPF (NONE SEEN); UR BILIRUBIN (Dip) NEGATIVE (NEGATIVE); UR BLOOD (Dip) NEGATIVE (NEGATIVE); UR CLARITY CLOUDY (CLEAR); UR COLOR YELLOW (YELLOW); UR GLUCOSE (Dip) NEGATIVE (NEGATIVE); UR KETONES (Dip) NEGATIVE (NEGATIVE); UR LEUKOCYTE ESTERASE (Dip) 3+ Leu/ul (NEGATIVE); UR NITRITE (Dip) POSITIVE (NEGATIVE); UR RBC 9 /HPF (0-5); UR SPECIFIC GRAVITY (Dip) 1.012 (1.003-1.030); UR TOTAL PROTEIN (Dip) 2+ mg/dl (NEGATIVE); UR UROBILINOGEN (Dip) NEGATIVE (NEGATIVE); UR WBC > 182 /HPF (0-5)
[2018-03-23] MEDS: ALBUTEROL 0.5% (NEB) 2.5 MG/0.5 ML AMP INH (08:02)
[2018-03-23] MEDS: NA BICARBONATE 8.4% 50 ML SYG IV (08:12)
[2018-03-23] MEDS: DEXTROSE 50% 50 ML SYRINGE IV (08:12)
[2018-03-23] MEDS: CA CHLORIDE 10% 10 ML SYRINGE IV (08:12)
[2018-03-23] MEDS: INSULIN REGULAR, HUMAN 100 UNIT/1 ML 3ML VIAL IVP (08:14)
[2018-03-23 08:20] LABS: INR 1.28; PROTIME 16.2 Sec (11.9-14.9); PT RATIO 1.3
[2018-03-23 11:10] LABS: ANION GAP 11 (8-16); BLOOD UREA NITROGEN 40 mg/dl (7-20); CALCIUM 9.1 mg/dl (8.4-10.2); CARBON DIOXIDE 22 mmol/L (21-31); CHLORIDE 109 mmol/L (97-110); CREATININE 2.81 mg/dl (0.61-1.24); GLUCOSE 65 mg/dl (70-220); SODIUM 136 mmol/L (135-144)
[2018-03-23 11:11] LABS: POTASSIUM 6.3 mmol/L (3.5-5.1)
[2018-03-23] MEDS ORDERED: NITROGLYCERIN (SL) 0.4 MG TAB SL (11:30)
[2018-03-23] MEDS ORDERED: NA PHOSPHATE/BIPHOS 133 ML ENEMA PR (11:30)
[2018-03-23] MEDS ORDERED: ALBUTEROL/IPRATROPIUM (NEB) 3 ML AMP HHN (11:30)
[2018-03-23] MEDS ORDERED: VANCOMYCIN IV PER PHARMACY XX (11:30)
[2018-03-23] MEDS ORDERED: NACL 0.9% 3 ML SYG IV (11:30)
[2018-03-23] MEDS ORDERED: ONDANSETRON 4 MG INJ IV (11:30)
[2018-03-23] MEDS ORDERED: MAGNESIUM HYDROXIDE 30ML CUP PO (11:30)
[2018-03-23] MEDS ORDERED: LORAZEPAM 0.5 MG TAB PO (11:30)
[2018-03-23] MEDS: INSULIN ASPART [NOVOLOG] 3 ML PEN SC ×2 (12:00→22:17)
[2018-03-23] MEDS ORDERED: DEXTROSE 50% 50 ML SYRINGE IV (12:30)
[2018-03-23] MEDS ORDERED: GLUCOSE GEL 15 GRAM TUBE PO ×2 (12:30)
[2018-03-23] MEDS ORDERED: GLUCOSE GEL 15 GRAM TUBE BUCCAL (12:30)
[2018-03-23] MEDS ORDERED: GLUCAGON 1 MG INJ IM (12:30)
[2018-03-23 12:36] LABS: INR 1.35; PROTIME 16.9 Sec (11.9-14.9); PT RATIO 1.3
[2018-03-23 12:37] LABS: PARTIAL THROMBOPLASTIN TIME 33.7 Sec (25.0-35.0)
[2018-03-23 12:42] LABS: FREE T4 (FREE THYROXINE) 1.21 ng/dl (0.78-2.44)
[2018-03-23] MEDS: SOD CHLORIDE 0.45% 1,000 ML IV (12:49)
[2018-03-23] MEDS: NA POLYST SULFON 15 GM/60 ML BTL PO (12:50)
[2018-03-23] MEDS: LIDOCAINE 1% (MDV) 20 ML INJ SC (12:50)
[2018-03-23 12:59] LABS: LACTIC ACID 0.8 mmol/L (0.5-2.0)
[2018-03-23] MEDS: VANCOMYCIN 1 GM in 250 ML IVPB (14:25)
[2018-03-23 16:00] LABS: LACTIC ACID 0.5 mmol/L (0.5-2.0)
[2018-03-23 20:23] LABS: LACTIC ACID 0.8 mmol/L (0.5-2.0)
[2018-03-23] MEDS: HEPARIN 5,000 UNIT/0.5 ML VIAL SC (21:00)
[2018-03-23] MEDS: FAMOTIDINE 20 MG TAB PO (21:14)
[2018-03-23] MEDS: PIPER-TAZO 2.25 GM (PMX) 50 ML IVPB (21:14)
[2018-03-23] MEDS: TAMSULOSIN (SR) 0.4 MG CAP PO (21:15)
[2018-03-23] MEDS: SOD CHLORIDE 0.9% 250 ML IV (21:33)
[2018-03-23 21:51] LABS: IMMEDIATE SPIN CROSSMATCH 1 1
[2018-03-23] MEDS: INSULIN GLARGINE [LANtus] 3 ML PEN SC (22:19)
[2018-03-23 23:48] LABS: LACTIC ACID 0.8 mmol/L (0.5-2.0)
[2018-03-24] MEDS: SOD CHLORIDE 0.45% 1,000 ML IV ×2 (00:39→05:31)
[2018-03-24] MEDS: PIPER-TAZO 2.25 GM (PMX) 50 ML IVPB ×5 (00:48→23:53)
[2018-03-24 06:13] LABS: LACTIC ACID 0.8 mmol/L (0.5-2.0)
[2018-03-24 06:24] LABS: CHOLESTEROL 85 mg/dl (100-200)
[2018-03-24 06:24] LABS: CHOL/HDL RATIO 4.7 RATIO; HDL CHOLESTEROL 18 mg/dl (30-78); LDL CHOLESTEROL,CALCULATED 52 mg/dl; TRIGLYCERIDES 77 mg/dl (0-149)
[2018-03-24 06:33] LABS: ANION GAP 13 (8-16); BLOOD UREA NITROGEN 36 mg/dl (7-20); CALCIUM 8.9 mg/dl (8.4-10.2); CARBON DIOXIDE 20 mmol/L (21-31); CHLORIDE 109 mmol/L (97-110); CREATININE 2.63 mg/dl (0.61-1.24); GLUCOSE 83 mg/dl (70-220); MAGNESIUM 2.1 mg/dl (1.7-2.5); PHOSPHORUS 4.9 mg/dl (2.5-4.9); SODIUM 136 mmol/L (135-144)
[2018-03-24 06:36] LABS: POTASSIUM 6.1 mmol/L (3.5-5.1)
[2018-03-24 07:05] LABS: HEMOGLOBIN A1C 7.4 % (0-5.9)
[2018-03-24 07:42] LABS: ADD MAN DIFF? NO; BASOPHILS % 0.2 % (0.0-2.0); EOSINOPHILS # 0.1 10^3/ul (0.0-0.5); EOSINOPHILS % 0.8 % (0.0-7.0); HEMATOCRIT 24.8 % (42.0-52.0); HEMOGLOBIN 7.9 g/dl (14.0-18.0); LYMPHOCYTES # 1.8 10^3/ul (0.8-2.9); LYMPHOCYTES % 9.5 % (15.0-51.0); MEAN CORPUSCULAR HEMOGLOBIN 27.5 pg (29.0-33.0); MEAN CORPUSCULAR HGB CONC 31.9 g/dl (32.0-37.0); MEAN CORPUSCULAR VOLUME 86.4 fl (82.0-101.0); MEAN PLATELET VOLUME 9.9 fl (7.4-10.4); MONOCYTE # 0.8 10^3/ul (0.3-0.9); MONOCYTES % 4.5 % (0.0-11.0); NEUTROPHIL # 15.3 10^3/ul (1.6-7.5); NEUTROPHILS % 82.5 % (39.0-77.0); PLATELET COUNT 341 10^3/UL (140-415); RED BLOOD COUNT 2.87 10^6/ul (4.70-6.10)
[2018-03-24 07:42] LABS: WHITE BLOOD COUNT 18.6 10^3/ul (4.8-10.8)
[2018-03-24 07:59] LABS: POTASSIUM 6.4 mmol/L (3.5-5.1)
[2018-03-24] MEDS ORDERED: NA POLYST SULFON 15 GM/60 ML BTL PO (08:43)
[2018-03-24 08:45] LABS: LACTIC ACID 0.8 mmol/L (0.5-2.0)
[2018-03-24] MEDS: HEPARIN 5,000 UNIT/0.5 ML VIAL SC ×3 (09:00→21:05)
[2018-03-24] MEDS: INSULIN ASPART [NOVOLOG] 3 ML PEN SC ×3 (09:41→17:31)
[2018-03-24] MEDS: ALLOPURINOL 100 MG TAB PO (09:42)
[2018-03-24] MEDS: CA CHLORIDE 10% 10 ML SYRINGE IV (09:45)
[2018-03-24] MEDS: NA BICARBONATE 8.4% 50 ML SYG IV (09:45)
[2018-03-24 09:46] LABS: AADO2 Arterial 22.9 mmHg (7.0-24.0); Arterial Base Excess -6.7 mmol/L (-3.0-3); Arterial Blood Gas Oxygen Sat 96.7 mmHG (95.0-98.0); Arterial COHb 0.1 % (0.0-3.0); Arterial Fraction of Oxyhgb 96.1 % (93.0-99.0); Arterial HCO3 17.5 mmol/L (22.0-26.0); Arterial MetHb 0.5 % (0.0-1.5); Arterial Total Hemglobin 9.2 g/dl (12.0-18.0); Arterial pCO2 30.1 mmhg (35-45); MODE ROOM AIR; Site Right Brachial
[2018-03-24] MEDS: ALBUTEROL 0.5% (NEB) 2.5 MG/0.5 ML AMP INH (09:49)
[2018-03-24] MEDS: NA POLYST SULFON 15 GM/60 ML BTL PO ×2 (09:51→15:35)
[2018-03-24] MEDS: ALBUTEROL HFA 8 GM INHALER INH (10:06)
[2018-03-24] MEDS: SODIUM BICARBONATE (IV ADD) 100 MEQ in DEXTROSE 5% 1,000 ML IV (10:48)
[2018-03-24] MEDS: ACETAMINOPHEN 325 MG TAB PO (11:31)
[2018-03-24] MEDS: hydrALAzine 20 MG INJ IV ×2 (13:09→15:46)
[2018-03-24 13:49] LABS: ANION GAP 14 (8-16); BLOOD UREA NITROGEN 35 mg/dl (7-20); CALCIUM 9.5 mg/dl (8.4-10.2); CARBON DIOXIDE 22 mmol/L (21-31); CHLORIDE 105 mmol/L (97-110); CREATININE 2.46 mg/dl (0.61-1.24); GLUCOSE 86 mg/dl (70-220); POTASSIUM 5.2 mmol/L (3.5-5.1); SODIUM 136 mmol/L (135-144)
[2018-03-24] MEDS: VANCOMYCIN 750 MG in DEXTROSE 5% 150 ML IVPB (15:44)
[2018-03-24] MEDS: AMLODIPINE 5 MG TAB PO (18:23)
[2018-03-24 19:46] LABS: ANION GAP 12 (8-16); BLOOD UREA NITROGEN 33 mg/dl (7-20); CALCIUM 9.3 mg/dl (8.4-10.2); CARBON DIOXIDE 25 mmol/L (21-31); CHLORIDE 105 mmol/L (97-110); CREATININE 2.45 mg/dl (0.61-1.24); GLUCOSE 146 mg/dl (70-220); POTASSIUM 4.7 mmol/L (3.5-5.1); SODIUM 137 mmol/L (135-144)
[2018-03-24] MEDS: GENTAMICIN 0.1% 15 GM OINT TOP (21:01)
[2018-03-24] MEDS: FAMOTIDINE 20 MG TAB PO (21:02)
[2018-03-24] MEDS: TAMSULOSIN (SR) 0.4 MG CAP PO (21:02)
[2018-03-24] MEDS: INSULIN GLARGINE [LANtus] 3 ML PEN SC (21:12)
[2018-03-25] MEDS: SOD CHLORIDE 0.45% 1,000 ML IV ×3 (03:18→19:34)
[2018-03-25] MEDS: PIPER-TAZO 2.25 GM (PMX) 50 ML IVPB ×2 (05:36→11:50)
[2018-03-25] MEDS: hydrALAzine 20 MG INJ IV (05:36)
[2018-03-25 05:38] LABS: ADD MAN DIFF? NO
[2018-03-25 05:46] LABS: WHITE BLOOD COUNT 14.2 10^3/ul (4.8-10.8)
[2018-03-25 05:46] LABS: BASOPHILS % 0.2 % (0.0-2.0); EOSINOPHILS # 0.2 10^3/ul (0.0-0.5); EOSINOPHILS % 1.4 % (0.0-7.0); HEMATOCRIT 26.2 % (42.0-52.0); HEMOGLOBIN 8.6 g/dl (14.0-18.0); LYMPHOCYTES # 1.8 10^3/ul (0.8-2.9); LYMPHOCYTES % 12.8 % (15.0-51.0); MEAN CORPUSCULAR HGB CONC 32.8 g/dl (32.0-37.0); MEAN CORPUSCULAR VOLUME 85.3 fl (82.0-101.0); MEAN PLATELET VOLUME 9.4 fl (7.4-10.4); MONOCYTE # 0.7 10^3/ul (0.3-0.9); MONOCYTES % 4.8 % (0.0-11.0); NEUTROPHIL # 10.9 10^3/ul (1.6-7.5); NEUTROPHILS % 77.1 % (39.0-77.0); PLATELET COUNT 336 10^3/UL (140-415); RED BLOOD COUNT 3.07 10^6/ul (4.70-6.10); RED CELL DISTRIBUTION WIDTH 14.9 % (11.5-14.5)
[2018-03-25 06:11] LABS: ANION GAP 14 (8-16); BLOOD UREA NITROGEN 32 mg/dl (7-20); CALCIUM 8.9 mg/dl (8.4-10.2); CARBON DIOXIDE 24 mmol/L (21-31); CHLORIDE 105 mmol/L (97-110); CREATININE 2.32 mg/dl (0.61-1.24); GLUCOSE 81 mg/dl (70-220); POTASSIUM 4.4 mmol/L (3.5-5.1); SODIUM 139 mmol/L (135-144)
[2018-03-25] MEDS: INSULIN ASPART [NOVOLOG] 3 ML PEN SC ×3 (07:35→17:05)
[2018-03-25] MEDS: SODIUM HYPOCHLORITE 1/40% 1L IRRIG IRR (09:00)
[2018-03-25] MEDS: ALLOPURINOL 100 MG TAB PO (09:00)
[2018-03-25] MEDS: HEPARIN 5,000 UNIT/0.5 ML VIAL SC ×2 (09:00→21:04)
[2018-03-25] MEDS: AMLODIPINE 5 MG TAB PO (09:00)
[2018-03-25] MEDS: VANCOMYCIN 750 MG in DEXTROSE 5% 150 ML IVPB (14:34)
[2018-03-25] MEDS ORDERED: DEXAMETHASONE 4 MG/ML 1 ML INJ (16:31)
[2018-03-25] MEDS ORDERED: MIDAZOLAM 1 MG/ML 2 ML INJ (16:31)
[2018-03-25] MEDS ORDERED: NEOSTIGMINE 3 MG/3 ML SYRINGE (16:31)
[2018-03-25] MEDS ORDERED: GLYCOPYRROLATE 0.4 MG INJ (16:31)
[2018-03-25] MEDS ORDERED: FENTAnyl 50 MCG/ML VIAL (16:31)
[2018-03-25] MEDS ORDERED: PROPOFOL 20 ML (16:31)
[2018-03-25] MEDS ORDERED: ROCURONIUM 50 MG INJ (16:31)
[2018-03-25] MEDS ORDERED: LIDOCAINE 2% (SDV) 5 ML INJ (16:31)
[2018-03-25] MEDS ORDERED: ONDANSETRON 4 MG INJ (16:32)
[2018-03-25] MEDS ORDERED: SUCCINYLCHOLINE CHLORIDE 100 MG/5 ML SYG IV (16:38)
[2018-03-25] MEDS: ERTAPENEM SODIUM 1 GM in SOD CHLORIDE 0.9% 100 ML IVPB (17:44)
[2018-03-25] MEDS: HYDROCODONE/APAP (5/325) TAB PO (19:39)
[2018-03-25] MEDS: TAMSULOSIN (SR) 0.4 MG CAP PO (21:00)
[2018-03-25] MEDS: FAMOTIDINE 20 MG TAB PO (21:01)
[2018-03-26] MEDS: INSULIN GLARGINE [LANtus] 3 ML PEN SC ×2 (00:12→20:44)
[2018-03-26] MEDS: DEXTROSE 5%-0.45% NACL 1,000 ML IV ×2 (00:17→14:02)
[2018-03-26 06:25] LABS: WHITE BLOOD COUNT 17.8 10^3/ul (4.8-10.8)
[2018-03-26 06:25] LABS: ADD MAN DIFF? NO; BASOPHILS % 0.2 % (0.0-2.0); EOSINOPHILS % 0.1 % (0.0-7.0); HEMATOCRIT 26.6 % (42.0-52.0); HEMOGLOBIN 8.5 g/dl (14.0-18.0); LYMPHOCYTES % 11.3 % (15.0-51.0); MEAN CORPUSCULAR HEMOGLOBIN 27.4 pg (29.0-33.0); MEAN CORPUSCULAR VOLUME 85.8 fl (82.0-101.0); MEAN PLATELET VOLUME 9.6 fl (7.4-10.4); MONOCYTE # 0.4 10^3/ul (0.3-0.9); MONOCYTES % 2.2 % (0.0-11.0); NEUTROPHIL # 14.8 10^3/ul (1.6-7.5); NEUTROPHILS % 82.8 % (39.0-77.0); PLATELET COUNT 343 10^3/UL (140-415); RED CELL DISTRIBUTION WIDTH 14.8 % (11.5-14.5)
[2018-03-26 06:49] LABS: ANION GAP 17 (8-16); BLOOD UREA NITROGEN 30 mg/dl (7-20); CALCIUM 8.4 mg/dl (8.4-10.2); CARBON DIOXIDE 22 mmol/L (21-31); CHLORIDE 105 mmol/L (97-110); CREATININE 2.21 mg/dl (0.61-1.24); GLUCOSE 129 mg/dl (70-220); POTASSIUM 4.7 mmol/L (3.5-5.1); SODIUM 139 mmol/L (135-144)
[2018-03-26] MEDS: INSULIN ASPART [NOVOLOG] 3 ML PEN SC ×4 (07:35→17:54)
[2018-03-26] MEDS: SODIUM HYPOCHLORITE 1/40% 1L IRRIG IRR (08:57)
[2018-03-26] MEDS: AMLODIPINE 5 MG TAB PO (08:57)
[2018-03-26] MEDS: ALLOPURINOL 100 MG TAB PO (08:57)
[2018-03-26] MEDS: HEPARIN 5,000 UNIT/0.5 ML VIAL SC (09:00)
[2018-03-26] MEDS: ERTAPENEM SODIUM 1 GM in SOD CHLORIDE 0.9% 100 ML IVPB (17:27)
[2018-03-26] MEDS: TAMSULOSIN (SR) 0.4 MG CAP PO (20:16)
[2018-03-26] MEDS: FAMOTIDINE 20 MG TAB PO (20:16)
[2018-03-26] MEDS: HYDROCODONE/APAP (5/325) TAB PO (20:30)
[2018-03-27] MEDS: DEXTROSE 5%-0.45% NACL 1,000 ML IV ×3 (02:56→23:34)
[2018-03-27 06:04] LABS: ADD MAN DIFF? NO
[2018-03-27 06:12] LABS: BASOPHILS % 0.2 % (0.0-2.0); EOSINOPHILS # 0.2 10^3/ul (0.0-0.5); EOSINOPHILS % 1.3 % (0.0-7.0); HEMATOCRIT 23.9 % (42.0-52.0); HEMOGLOBIN 7.7 g/dl (14.0-18.0); LYMPHOCYTES # 2.3 10^3/ul (0.8-2.9); LYMPHOCYTES % 18.3 % (15.0-51.0); MEAN CORPUSCULAR HEMOGLOBIN 27.6 pg (29.0-33.0); MEAN CORPUSCULAR HGB CONC 32.2 g/dl (32.0-37.0); MEAN CORPUSCULAR VOLUME 85.7 fl (82.0-101.0); MEAN PLATELET VOLUME 9.6 fl (7.4-10.4); MONOCYTE # 0.7 10^3/ul (0.3-0.9); MONOCYTES % 5.7 % (0.0-11.0); NEUTROPHILS % 72.4 % (39.0-77.0); PLATELET COUNT 305 10^3/UL (140-415); RED BLOOD COUNT 2.79 10^6/ul (4.70-6.10); RED CELL DISTRIBUTION WIDTH 14.6 % (11.5-14.5)
[2018-03-27 06:12] LABS: WHITE BLOOD COUNT 12.4 10^3/ul (4.8-10.8)
[2018-03-27 06:45] LABS: ANION GAP 13 (8-16); BLOOD UREA NITROGEN 34 mg/dl (7-20); CALCIUM 8.6 mg/dl (8.4-10.2); CARBON DIOXIDE 24 mmol/L (21-31); CHLORIDE 106 mmol/L (97-110); CREATININE 1.89 mg/dl (0.61-1.24); GLUCOSE 79 mg/dl (70-220); POTASSIUM 4.3 mmol/L (3.5-5.1); SODIUM 139 mmol/L (135-144)
[2018-03-27] MEDS: INSULIN ASPART [NOVOLOG] 3 ML PEN SC ×3 (08:15→18:00)
[2018-03-27] MEDS: SODIUM HYPOCHLORITE 1/40% 1L IRRIG IRR (08:16)
[2018-03-27] MEDS: AMLODIPINE 5 MG TAB PO (08:17)
[2018-03-27] MEDS: ALLOPURINOL 100 MG TAB PO (08:18)
[2018-03-27] MEDS: DEXTROSE 50% 50 ML SYRINGE IV (11:56)
[2018-03-27] MEDS ORDERED: MIDAZOLAM 1 MG/ML 2 ML INJ (15:39)
[2018-03-27] MEDS ORDERED: PROPOFOL 40 ML (15:39)
[2018-03-27] MEDS ORDERED: PROPOFOL 20 ML (15:39)
[2018-03-27] MEDS ORDERED: FENTAnyl 50 MCG/ML VIAL (15:39)
[2018-03-27] MEDS ORDERED: LIDOCAINE 1% (MDV) 10 ML INJ (15:48)
[2018-03-27] MEDS ORDERED: HYDROmorphONE (0.2 MG/ML) 10ML SYG IV ×3 (16:00)
[2018-03-27] MEDS ORDERED: ONDANSETRON 4 MG INJ IV (16:00)
[2018-03-27] MEDS ORDERED: LABETALOL HCL 20MG INJ IV (16:00)
[2018-03-27] MEDS ORDERED: hydrALAzine 20 MG INJ IV (16:00)
[2018-03-27] MEDS: HYDROCODONE/APAP (5/325) TAB PO (18:33)
[2018-03-27] MEDS: ERTAPENEM SODIUM 1 GM in SOD CHLORIDE 0.9% 100 ML IVPB (18:51)
[2018-03-27] MEDS: morphine LIQ (10 MG/5 ML) CUP PO (20:25)
[2018-03-27] MEDS: TAMSULOSIN (SR) 0.4 MG CAP PO (20:26)
[2018-03-27] MEDS: FAMOTIDINE 20 MG TAB PO (20:26)
[2018-03-27] MEDS: INSULIN GLARGINE [LANtus] 3 ML PEN SC (20:32)
[2018-03-28 05:49] LABS: ADD MAN DIFF? NO
[2018-03-28 05:57] LABS: BASOPHILS % 0.3 % (0.0-2.0); EOSINOPHILS # 0.1 10^3/ul (0.0-0.5); EOSINOPHILS % 1.2 % (0.0-7.0); HEMATOCRIT 24.6 % (42.0-52.0); HEMOGLOBIN 7.9 g/dl (14.0-18.0); LYMPHOCYTES # 1.9 10^3/ul (0.8-2.9); LYMPHOCYTES % 16.4 % (15.0-51.0); MEAN CORPUSCULAR HEMOGLOBIN 27.6 pg (29.0-33.0); MEAN CORPUSCULAR HGB CONC 32.1 g/dl (32.0-37.0); MEAN PLATELET VOLUME 9.3 fl (7.4-10.4); MONOCYTE # 0.6 10^3/ul (0.3-0.9); MONOCYTES % 5.4 % (0.0-11.0); NEUTROPHIL # 8.6 10^3/ul (1.6-7.5); PLATELET COUNT 298 10^3/UL (140-415); RED BLOOD COUNT 2.86 10^6/ul (4.70-6.10); RED CELL DISTRIBUTION WIDTH 14.4 % (11.5-14.5)
[2018-03-28 05:57] LABS: WHITE BLOOD COUNT 11.4 10^3/ul (4.8-10.8)
[2018-03-28 06:14] LABS: ANION GAP 11 (8-16); BLOOD UREA NITROGEN 29 mg/dl (7-20); CALCIUM 8.5 mg/dl (8.4-10.2); CARBON DIOXIDE 26 mmol/L (21-31); CHLORIDE 106 mmol/L (97-110); CREATININE 1.69 mg/dl (0.61-1.24); GLUCOSE 146 mg/dl (70-220); SODIUM 139 mmol/L (135-144)
[2018-03-28] MEDS: AMLODIPINE 5 MG TAB PO (08:12)
[2018-03-28] MEDS: ALLOPURINOL 100 MG TAB PO (08:12)
[2018-03-28] MEDS: SODIUM HYPOCHLORITE 1/40% 1L IRRIG IRR (08:14)
[2018-03-28] MEDS: INSULIN ASPART [NOVOLOG] 3 ML PEN SC ×3 (08:16→17:35)
[2018-03-28] MEDS: ERTAPENEM SODIUM 1 GM in SOD CHLORIDE 0.9% 100 ML IVPB (17:32)
[2018-03-28] MEDS: DEXTROSE 5%-0.45% NACL 1,000 ML IV (18:18)
[2018-03-28] MEDS: TAMSULOSIN (SR) 0.4 MG CAP PO (21:18)
[2018-03-28] MEDS: FAMOTIDINE 20 MG TAB PO (21:23)
[2018-03-28] MEDS: INSULIN GLARGINE [LANtus] 3 ML PEN SC (21:28)
[2018-03-29 06:18] LABS: ADD MAN DIFF? NO
[2018-03-29 06:27] LABS: WHITE BLOOD COUNT 11.6 10^3/ul (4.8-10.8)
[2018-03-29 06:27] LABS: BASOPHILS % 0.2 % (0.0-2.0); EOSINOPHILS # 0.2 10^3/ul (0.0-0.5); EOSINOPHILS % 1.5 % (0.0-7.0); HEMATOCRIT 24.9 % (42.0-52.0); LYMPHOCYTES # 2.3 10^3/ul (0.8-2.9); LYMPHOCYTES % 20.1 % (15.0-51.0); MEAN CORPUSCULAR HEMOGLOBIN 27.2 pg (29.0-33.0); MEAN CORPUSCULAR HGB CONC 32.1 g/dl (32.0-37.0); MEAN CORPUSCULAR VOLUME 84.7 fl (82.0-101.0); MEAN PLATELET VOLUME 9.4 fl (7.4-10.4); MONOCYTE # 0.7 10^3/ul (0.3-0.9); MONOCYTES % 5.8 % (0.0-11.0); NEUTROPHIL # 8.2 10^3/ul (1.6-7.5); NEUTROPHILS % 70.9 % (39.0-77.0); PLATELET COUNT 281 10^3/UL (140-415); RED BLOOD COUNT 2.94 10^6/ul (4.70-6.10); RED CELL DISTRIBUTION WIDTH 14.5 % (11.5-14.5)
[2018-03-29 07:31] LABS: ANION GAP 13 (8-16); BLOOD UREA NITROGEN 25 mg/dl (7-20); CALCIUM 8.6 mg/dl (8.4-10.2); CARBON DIOXIDE 23 mmol/L (21-31); CHLORIDE 106 mmol/L (97-110); CREATININE 1.56 mg/dl (0.61-1.24); GLUCOSE 141 mg/dl (70-220); SODIUM 138 mmol/L (135-144)
[2018-03-29] MEDS: ALLOPURINOL 100 MG TAB PO (08:03)
[2018-03-29] MEDS: AMLODIPINE 5 MG TAB PO (08:04)
[2018-03-29] MEDS ORDERED: LIDOCAINE 1% (MDV) 10 ML INJ (08:12)
[2018-03-29] MEDS: DEXTROSE 5%-0.45% NACL 1,000 ML IV ×2 (09:22→22:23)
[2018-03-29] MEDS: SODIUM HYPOCHLORITE 1/40% 1L IRRIG IRR (09:22)
[2018-03-29] MEDS: INSULIN ASPART [NOVOLOG] 3 ML PEN SC ×3 (09:33→17:22)
[2018-03-29] MEDS: ERTAPENEM SODIUM 1 GM in SOD CHLORIDE 0.9% 100 ML IVPB (16:30)
[2018-03-29] MEDS: FAMOTIDINE 20 MG TAB PO (20:12)
[2018-03-29] MEDS: TAMSULOSIN (SR) 0.4 MG CAP PO (20:13)
[2018-03-29] MEDS: INSULIN GLARGINE [LANtus] 3 ML PEN SC (21:19)
[2018-03-30 06:12] LABS: ADD MAN DIFF? NO
[2018-03-30 06:23] LABS: BASOPHILS % 0.2 % (0.0-2.0); EOSINOPHILS # 0.2 10^3/ul (0.0-0.5); EOSINOPHILS % 1.5 % (0.0-7.0); HEMATOCRIT 24.6 % (42.0-52.0); LYMPHOCYTES # 2.6 10^3/ul (0.8-2.9); LYMPHOCYTES % 23.9 % (15.0-51.0); MEAN CORPUSCULAR HEMOGLOBIN 27.3 pg (29.0-33.0); MEAN CORPUSCULAR HGB CONC 32.5 g/dl (32.0-37.0); MEAN PLATELET VOLUME 9.4 fl (7.4-10.4); MONOCYTE # 0.6 10^3/ul (0.3-0.9); MONOCYTES % 5.9 % (0.0-11.0); NEUTROPHIL # 7.3 10^3/ul (1.6-7.5); NEUTROPHILS % 67.2 % (39.0-77.0); PLATELET COUNT 271 10^3/UL (140-415); RED BLOOD COUNT 2.93 10^6/ul (4.70-6.10); RED CELL DISTRIBUTION WIDTH 14.4 % (11.5-14.5)
[2018-03-30 06:23] LABS: WHITE BLOOD COUNT 10.8 10^3/ul (4.8-10.8)
[2018-03-30 07:12] LABS: ANION GAP 11 (8-16); BLOOD UREA NITROGEN 29 mg/dl (7-20); CALCIUM 8.6 mg/dl (8.4-10.2); CARBON DIOXIDE 24 mmol/L (21-31); CHLORIDE 107 mmol/L (97-110); CREATININE 1.75 mg/dl (0.61-1.24); GLUCOSE 124 mg/dl (70-220); SODIUM 138 mmol/L (135-144)
[2018-03-30] MEDS: INSULIN ASPART [NOVOLOG] 3 ML PEN SC ×3 (07:52→17:19)
[2018-03-30] MEDS: ALLOPURINOL 100 MG TAB PO (08:20)
[2018-03-30] MEDS: HYDROCODONE/APAP (5/325) TAB PO (08:20)
[2018-03-30] MEDS: AMLODIPINE 5 MG TAB PO (08:21)
[2018-03-30] MEDS: SODIUM HYPOCHLORITE 1/40% 1L IRRIG IRR (08:22)
[2018-03-30] MEDS: DEXTROSE 5%-0.45% NACL 1,000 ML IV ×2 (11:10→17:17)
[2018-03-30] MEDS: ERTAPENEM SODIUM 1 GM in SOD CHLORIDE 0.9% 100 ML IVPB (16:31)
[2018-03-30] MEDS: TAMSULOSIN (SR) 0.4 MG CAP PO (21:15)
[2018-03-30] MEDS: FAMOTIDINE 20 MG TAB PO (21:15)
[2018-03-30] MEDS: INSULIN GLARGINE [LANtus] 3 ML PEN SC (21:20)
[2018-03-31] MEDS: DEXTROSE 5%-0.45% NACL 1,000 ML IV ×2 (04:36→18:37)
[2018-03-31 05:27] LABS: ADD MAN DIFF? NO
[2018-03-31 05:31] LABS: WHITE BLOOD COUNT 10.4 10^3/ul (4.8-10.8)
[2018-03-31 05:31] LABS: BASOPHILS % 0.2 % (0.0-2.0); EOSINOPHILS # 0.2 10^3/ul (0.0-0.5); EOSINOPHILS % 1.9 % (0.0-7.0); HEMATOCRIT 25.3 % (42.0-52.0); HEMOGLOBIN 8.2 g/dl (14.0-18.0); LYMPHOCYTES # 2.2 10^3/ul (0.8-2.9); LYMPHOCYTES % 21.1 % (15.0-51.0); MEAN CORPUSCULAR HEMOGLOBIN 27.3 pg (29.0-33.0); MEAN CORPUSCULAR HGB CONC 32.4 g/dl (32.0-37.0); MEAN CORPUSCULAR VOLUME 84.3 fl (82.0-101.0); MEAN PLATELET VOLUME 9.4 fl (7.4-10.4); MONOCYTE # 0.6 10^3/ul (0.3-0.9); MONOCYTES % 5.4 % (0.0-11.0); NEUTROPHIL # 7.3 10^3/ul (1.6-7.5); NEUTROPHILS % 70.6 % (39.0-77.0); PLATELET COUNT 275 10^3/UL (140-415); RED CELL DISTRIBUTION WIDTH 14.5 % (11.5-14.5)
[2018-03-31 05:44] LABS: ANION GAP 15 (8-16); BLOOD UREA NITROGEN 29 mg/dl (7-20); CALCIUM 8.6 mg/dl (8.4-10.2); CARBON DIOXIDE 22 mmol/L (21-31); CHLORIDE 106 mmol/L (97-110); CREATININE 1.62 mg/dl (0.61-1.24); GLUCOSE 155 mg/dl (70-220); MAGNESIUM 1.7 mg/dl (1.7-2.5); PHOSPHORUS 4.1 mg/dl (2.5-4.9); SODIUM 139 mmol/L (135-144)
[2018-03-31] MEDS: SODIUM HYPOCHLORITE 1/40% 1L IRRIG IRR (08:09)
[2018-03-31] MEDS: INSULIN ASPART [NOVOLOG] 3 ML PEN SC ×3 (08:09→17:25)
[2018-03-31] MEDS: ALLOPURINOL 100 MG TAB PO (08:10)
[2018-03-31] MEDS: AMLODIPINE 5 MG TAB PO (08:11)
[2018-03-31] MEDS: MAGNESIUM OXIDE 400 MG TAB PO (09:48)
[2018-03-31] MEDS: DOCUSATE SODIUM 100 MG CAP PO (09:50)
[2018-03-31] MEDS: HYDROCODONE/APAP (5/325) TAB PO (12:32)
[2018-03-31] MEDS: ERTAPENEM SODIUM 1 GM in SOD CHLORIDE 0.9% 100 ML IVPB (16:24)
[2018-03-31] MEDS: TAMSULOSIN (SR) 0.4 MG CAP PO (20:56)
[2018-03-31] MEDS: FAMOTIDINE 20 MG TAB PO (20:56)
[2018-03-31] MEDS: INSULIN GLARGINE [LANtus] 3 ML PEN SC (21:00)
[2018-04-01] MEDS: DEXTROSE 5%-0.45% NACL 1,000 ML IV ×3 (00:36→20:36)
[2018-04-01 05:49] LABS: ADD MAN DIFF? NO
[2018-04-01 05:54] LABS: BASOPHILS % 0.2 % (0.0-2.0); EOSINOPHILS # 0.2 10^3/ul (0.0-0.5); EOSINOPHILS % 2.4 % (0.0-7.0); HEMATOCRIT 25.1 % (42.0-52.0); HEMOGLOBIN 8.3 g/dl (14.0-18.0); LYMPHOCYTES # 2.6 10^3/ul (0.8-2.9); LYMPHOCYTES % 26.1 % (15.0-51.0); MEAN CORPUSCULAR HEMOGLOBIN 27.9 pg (29.0-33.0); MEAN CORPUSCULAR HGB CONC 33.1 g/dl (32.0-37.0); MEAN CORPUSCULAR VOLUME 84.5 fl (82.0-101.0); MEAN PLATELET VOLUME 9.5 fl (7.4-10.4); MONOCYTE # 0.6 10^3/ul (0.3-0.9); MONOCYTES % 5.9 % (0.0-11.0); NEUTROPHIL # 6.3 10^3/ul (1.6-7.5); NEUTROPHILS % 64.5 % (39.0-77.0); PLATELET COUNT 285 10^3/UL (140-415); RED BLOOD COUNT 2.97 10^6/ul (4.70-6.10); RED CELL DISTRIBUTION WIDTH 14.6 % (11.5-14.5)
[2018-04-01 05:54] LABS: WHITE BLOOD COUNT 9.8 10^3/ul (4.8-10.8)
[2018-04-01 06:20] LABS: ANION GAP 14 (8-16); BLOOD UREA NITROGEN 30 mg/dl (7-20); CALCIUM 8.7 mg/dl (8.4-10.2); CARBON DIOXIDE 23 mmol/L (21-31); CHLORIDE 106 mmol/L (97-110); CREATININE 1.64 mg/dl (0.61-1.24); GLUCOSE 108 mg/dl (70-220); MAGNESIUM 1.8 mg/dl (1.7-2.5); PHOSPHORUS 4.1 mg/dl (2.5-4.9); POTASSIUM 4.1 mmol/L (3.5-5.1); SODIUM 139 mmol/L (135-144)
[2018-04-01] MEDS: ALLOPURINOL 100 MG TAB PO (08:01)
[2018-04-01] MEDS: AMLODIPINE 5 MG TAB PO (08:02)
[2018-04-01] MEDS: SODIUM HYPOCHLORITE 1/40% 1L IRRIG IRR (08:03)
[2018-04-01] MEDS: INSULIN ASPART [NOVOLOG] 3 ML PEN SC ×3 (08:05→17:19)
[2018-04-01] MEDS: MAGNESIUM HYDROXIDE 30ML CUP PO (12:00)
[2018-04-01] MEDS: DOCUSATE SODIUM 100 MG CAP PO (12:13)
[2018-04-01] MEDS: ERTAPENEM SODIUM 1 GM in SOD CHLORIDE 0.9% 100 ML IVPB (16:40)
[2018-04-01] MEDS: FAMOTIDINE 20 MG TAB PO (20:34)
[2018-04-01] MEDS: TAMSULOSIN (SR) 0.4 MG CAP PO (20:35)
[2018-04-01] MEDS: INSULIN GLARGINE [LANtus] 3 ML PEN SC (20:38)
[2018-04-02 05:46] LABS: ADD MAN DIFF? NO
[2018-04-02 05:50] LABS: BASOPHILS % 0.2 % (0.0-2.0); EOSINOPHILS # 0.2 10^3/ul (0.0-0.5); EOSINOPHILS % 2.5 % (0.0-7.0); HEMATOCRIT 25.5 % (42.0-52.0); HEMOGLOBIN 8.3 g/dl (14.0-18.0); LYMPHOCYTES # 2.6 10^3/ul (0.8-2.9); LYMPHOCYTES % 26.8 % (15.0-51.0); MEAN CORPUSCULAR HEMOGLOBIN 27.4 pg (29.0-33.0); MEAN CORPUSCULAR HGB CONC 32.5 g/dl (32.0-37.0); MEAN CORPUSCULAR VOLUME 84.2 fl (82.0-101.0); MEAN PLATELET VOLUME 9.4 fl (7.4-10.4); MONOCYTE # 0.5 10^3/ul (0.3-0.9); MONOCYTES % 5.5 % (0.0-11.0); NEUTROPHIL # 6.2 10^3/ul (1.6-7.5); NEUTROPHILS % 64.5 % (39.0-77.0); PLATELET COUNT 300 10^3/UL (140-415); RED BLOOD COUNT 3.03 10^6/ul (4.70-6.10); RED CELL DISTRIBUTION WIDTH 14.6 % (11.5-14.5)
[2018-04-02 05:50] LABS: WHITE BLOOD COUNT 9.6 10^3/ul (4.8-10.8)
[2018-04-02 06:20] LABS: ANION GAP 11 (8-16); BLOOD UREA NITROGEN 31 mg/dl (7-20); CALCIUM 8.9 mg/dl (8.4-10.2); CARBON DIOXIDE 26 mmol/L (21-31); CHLORIDE 108 mmol/L (97-110); CREATININE 1.74 mg/dl (0.61-1.24); GLUCOSE 86 mg/dl (70-220); MAGNESIUM 1.9 mg/dl (1.7-2.5); PHOSPHORUS 4.5 mg/dl (2.5-4.9); POTASSIUM 4.2 mmol/L (3.5-5.1); SODIUM 141 mmol/L (135-144)
[2018-04-02] MEDS: INSULIN ASPART [NOVOLOG] 3 ML PEN SC ×4 (08:04→17:20)
[2018-04-02] MEDS: MAGNESIUM HYDROXIDE 30ML CUP PO (09:00)
[2018-04-02] MEDS: NIFEdipine (XL) 30 MG TAB PO (09:57)
[2018-04-02] MEDS: ALLOPURINOL 100 MG TAB PO (09:57)
[2018-04-02] MEDS: SODIUM HYPOCHLORITE 1/40% 1L IRRIG IRR (12:11)
[2018-04-02] MEDS: ERTAPENEM SODIUM 1 GM in SOD CHLORIDE 0.9% 100 ML IVPB (16:38)
[2018-04-02] MEDS: DEXTROSE 5%-0.45% NACL 1,000 ML IV (17:58)
[2018-04-02] MEDS: FAMOTIDINE 20 MG TAB PO (20:24)
[2018-04-02] MEDS: TAMSULOSIN (SR) 0.4 MG CAP PO (20:24)
[2018-04-02] MEDS: INSULIN GLARGINE [LANtus] 3 ML PEN SC (20:31)
[2018-04-03 05:59] LABS: ADD MAN DIFF? NO
[2018-04-03 06:06] LABS: WHITE BLOOD COUNT 8.7 10^3/ul (4.8-10.8)
[2018-04-03 06:06] LABS: BASOPHILS % 0.2 % (0.0-2.0); EOSINOPHILS # 0.2 10^3/ul (0.0-0.5); EOSINOPHILS % 2.1 % (0.0-7.0); HEMATOCRIT 24.8 % (42.0-52.0); HEMOGLOBIN 8.1 g/dl (14.0-18.0); LYMPHOCYTES # 2.6 10^3/ul (0.8-2.9); LYMPHOCYTES % 29.3 % (15.0-51.0); MEAN CORPUSCULAR HEMOGLOBIN 27.6 pg (29.0-33.0); MEAN CORPUSCULAR HGB CONC 32.7 g/dl (32.0-37.0); MEAN CORPUSCULAR VOLUME 84.4 fl (82.0-101.0); MONOCYTE # 0.5 10^3/ul (0.3-0.9); MONOCYTES % 5.6 % (0.0-11.0); NEUTROPHIL # 5.5 10^3/ul (1.6-7.5); NEUTROPHILS % 62.3 % (39.0-77.0); PLATELET COUNT 300 10^3/UL (140-415); RED BLOOD COUNT 2.94 10^6/ul (4.70-6.10); RED CELL DISTRIBUTION WIDTH 14.8 % (11.5-14.5)
[2018-04-03 06:25] LABS: ALBUMIN 3.1 g/dl (3.3-4.9); ANION GAP 14 (8-16); BLOOD UREA NITROGEN 36 mg/dl (7-20); CALCIUM 8.8 mg/dl (8.4-10.2); CARBON DIOXIDE 25 mmol/L (21-31); CHLORIDE 106 mmol/L (97-110); GLUCOSE 95 mg/dl (70-220); PHOSPHORUS 4.9 mg/dl (2.5-4.9); POTASSIUM 3.8 mmol/L (3.5-5.1); SODIUM 141 mmol/L (135-144)
[2018-04-03] MEDS: INSULIN ASPART [NOVOLOG] 3 ML PEN SC ×3 (08:07→18:11)
[2018-04-03] MEDS: ALLOPURINOL 100 MG TAB PO (08:08)
[2018-04-03] MEDS: SODIUM HYPOCHLORITE 1/40% 1L IRRIG IRR (08:09)
[2018-04-03] MEDS: MAGNESIUM HYDROXIDE 30ML CUP PO (08:09)
[2018-04-03] MEDS: NIFEdipine (XL) 30 MG TAB PO (08:09)
[2018-04-03] MEDS: DEXTROSE 5%-0.45% NACL 1,000 ML IV (13:13)
[2018-04-03] MEDS: ERTAPENEM SODIUM 1 GM in SOD CHLORIDE 0.9% 100 ML IVPB (15:43)
[2018-04-03] MEDS: TAMSULOSIN (SR) 0.4 MG CAP PO (22:45)
[2018-04-03] MEDS: FAMOTIDINE 20 MG TAB PO (22:46)
[2018-04-03] MEDS: INSULIN GLARGINE [LANtus] 3 ML PEN SC (22:48)
[2018-04-04 06:12] LABS: ADD MAN DIFF? NO
[2018-04-04 06:16] LABS: BASOPHILS % 0.2 % (0.0-2.0); EOSINOPHILS # 0.2 10^3/ul (0.0-0.5); EOSINOPHILS % 2.2 % (0.0-7.0); HEMOGLOBIN 8.3 g/dl (14.0-18.0); LYMPHOCYTES # 2.7 10^3/ul (0.8-2.9); MEAN CORPUSCULAR HEMOGLOBIN 27.1 pg (29.0-33.0); MEAN CORPUSCULAR HGB CONC 31.9 g/dl (32.0-37.0); MONOCYTE # 0.5 10^3/ul (0.3-0.9); MONOCYTES % 5.5 % (0.0-11.0); NEUTROPHIL # 5.6 10^3/ul (1.6-7.5); NEUTROPHILS % 61.7 % (39.0-77.0); PLATELET COUNT 313 10^3/UL (140-415); RED BLOOD COUNT 3.06 10^6/ul (4.70-6.10); RED CELL DISTRIBUTION WIDTH 14.8 % (11.5-14.5)
[2018-04-04 06:16] LABS: WHITE BLOOD COUNT 9.1 10^3/ul (4.8-10.8)
[2018-04-04] MEDS: DEXTROSE 5%-0.45% NACL 1,000 ML IV (06:21)
[2018-04-04 06:35] LABS: ANION GAP 11 (8-16); BLOOD UREA NITROGEN 40 mg/dl (7-20); CALCIUM 8.9 mg/dl (8.4-10.2); CARBON DIOXIDE 25 mmol/L (21-31); CHLORIDE 108 mmol/L (97-110); CREATININE 1.98 mg/dl (0.61-1.24); GLUCOSE 93 mg/dl (70-220); PHOSPHORUS 4.6 mg/dl (2.5-4.9); POTASSIUM 4.4 mmol/L (3.5-5.1); SODIUM 140 mmol/L (135-144)
[2018-04-04] MEDS: INSULIN ASPART [NOVOLOG] 3 ML PEN SC ×3 (07:56→17:47)
[2018-04-04] MEDS: MAGNESIUM HYDROXIDE 30ML CUP PO (09:00)
[2018-04-04] MEDS: SODIUM HYPOCHLORITE 1/40% 1L IRRIG IRR (09:38)
[2018-04-04] MEDS: ALLOPURINOL 100 MG TAB PO (09:38)
[2018-04-04] MEDS: NIFEdipine (XL) 30 MG TAB PO (09:40)
[2018-04-04] MEDS: ERTAPENEM SODIUM 1 GM in SOD CHLORIDE 0.9% 100 ML IVPB (15:50)
[2018-04-04] MEDS: TAMSULOSIN (SR) 0.4 MG CAP PO (20:53)
[2018-04-04] MEDS: FAMOTIDINE 20 MG TAB PO (20:54)
[2018-04-04] MEDS: INSULIN GLARGINE [LANtus] 3 ML PEN SC (20:57)
[2018-04-05 06:08] LABS: ADD MAN DIFF? NO
[2018-04-05 06:13] LABS: BASOPHILS % 0.1 % (0.0-2.0); EOSINOPHILS # 0.3 10^3/ul (0.0-0.5); EOSINOPHILS % 2.9 % (0.0-7.0); HEMATOCRIT 24.8 % (42.0-52.0); HEMOGLOBIN 8.1 g/dl (14.0-18.0); LYMPHOCYTES # 2.6 10^3/ul (0.8-2.9); LYMPHOCYTES % 30.7 % (15.0-51.0); MEAN CORPUSCULAR HEMOGLOBIN 27.6 pg (29.0-33.0); MEAN CORPUSCULAR HGB CONC 32.7 g/dl (32.0-37.0); MEAN CORPUSCULAR VOLUME 84.6 fl (82.0-101.0); MONOCYTE # 0.5 10^3/ul (0.3-0.9); MONOCYTES % 5.5 % (0.0-11.0); NEUTROPHIL # 5.2 10^3/ul (1.6-7.5); NEUTROPHILS % 60.3 % (39.0-77.0); PLATELET COUNT 296 10^3/UL (140-415); RED BLOOD COUNT 2.93 10^6/ul (4.70-6.10)
[2018-04-05 06:13] LABS: WHITE BLOOD COUNT 8.6 10^3/ul (4.8-10.8)
[2018-04-05 07:03] LABS: BLOOD UREA NITROGEN 40 mg/dl (7-20); CARBON DIOXIDE 24 mmol/L (21-31); CHLORIDE 107 mmol/L (97-110); CREATININE 1.86 mg/dl (0.61-1.24); GLUCOSE 76 mg/dl (70-220); PHOSPHORUS 4.9 mg/dl (2.5-4.9); SODIUM 141 mmol/L (135-144)
[2018-04-05 07:07] LABS: ANION GAP 15 (8-16); POTASSIUM 4.7 mmol/L (3.5-5.1)
[2018-04-05] MEDS: DEXTROSE 5%-0.45% NACL 1,000 ML IV ×2 (08:11→12:47)
[2018-04-05] MEDS: MAGNESIUM HYDROXIDE 30ML CUP PO ×3 (08:37→09:00)
[2018-04-05] MEDS: ALLOPURINOL 100 MG TAB PO (08:38)
[2018-04-05] MEDS: NIFEdipine (XL) 30 MG TAB PO (08:39)
[2018-04-05] MEDS: INSULIN ASPART [NOVOLOG] 3 ML PEN SC ×3 (08:39→17:41)
[2018-04-05] MEDS: SODIUM HYPOCHLORITE 1/40% 1L IRRIG IRR (08:40)
[2018-04-05] MEDS: ERTAPENEM SODIUM 1 GM in SOD CHLORIDE 0.9% 100 ML IVPB (16:47)
[2018-04-05] MEDS: FAMOTIDINE 20 MG TAB PO (20:14)
[2018-04-05] MEDS: TAMSULOSIN (SR) 0.4 MG CAP PO (20:14)
[2018-04-05] MEDS: INSULIN GLARGINE [LANtus] 3 ML PEN SC (20:20)
[2018-04-06] MEDS: DEXTROSE 5%-0.45% NACL 1,000 ML IV ×3 (00:02→20:36)
[2018-04-06 05:48] LABS: ADD MAN DIFF? NO
[2018-04-06 06:05] LABS: WHITE BLOOD COUNT 9.1 10^3/ul (4.8-10.8)
[2018-04-06 06:05] LABS: BASOPHILS % 0.3 % (0.0-2.0); EOSINOPHILS # 0.2 10^3/ul (0.0-0.5); EOSINOPHILS % 2.4 % (0.0-7.0); HEMATOCRIT 26.2 % (42.0-52.0); HEMOGLOBIN 8.4 g/dl (14.0-18.0); LYMPHOCYTES % 32.8 % (15.0-51.0); MEAN CORPUSCULAR HEMOGLOBIN 27.3 pg (29.0-33.0); MEAN CORPUSCULAR HGB CONC 32.1 g/dl (32.0-37.0); MEAN CORPUSCULAR VOLUME 85.1 fl (82.0-101.0); MEAN PLATELET VOLUME 10.2 fl (7.4-10.4); MONOCYTE # 0.5 10^3/ul (0.3-0.9); MONOCYTES % 5.6 % (0.0-11.0); NEUTROPHIL # 5.4 10^3/ul (1.6-7.5); NEUTROPHILS % 58.6 % (39.0-77.0); PLATELET COUNT 311 10^3/UL (140-415); RED BLOOD COUNT 3.08 10^6/ul (4.70-6.10); RED CELL DISTRIBUTION WIDTH 14.8 % (11.5-14.5)
[2018-04-06 06:23] LABS: ALBUMIN 3.3 g/dl (3.3-4.9); ANION GAP 16 (8-16); BLOOD UREA NITROGEN 38 mg/dl (7-20); CALCIUM 8.8 mg/dl (8.4-10.2); CARBON DIOXIDE 24 mmol/L (21-31); CHLORIDE 106 mmol/L (97-110); CREATININE 1.91 mg/dl (0.61-1.24); GLUCOSE 64 mg/dl (70-220); PHOSPHORUS 4.7 mg/dl (2.5-4.9); POTASSIUM 4.3 mmol/L (3.5-5.1); SODIUM 142 mmol/L (135-144)
[2018-04-06] MEDS: INSULIN ASPART [NOVOLOG] 3 ML PEN SC ×3 (08:15→17:35)
[2018-04-06] MEDS: SODIUM HYPOCHLORITE 1/40% 1L IRRIG IRR (08:44)
[2018-04-06] MEDS: MAGNESIUM HYDROXIDE 30ML CUP PO (08:45)
[2018-04-06] MEDS: ALLOPURINOL 100 MG TAB PO (08:46)
[2018-04-06] MEDS: NIFEdipine (XL) 30 MG TAB PO (08:47)
[2018-04-06] MEDS: ERTAPENEM SODIUM 1 GM in SOD CHLORIDE 0.9% 100 ML IVPB (17:35)
[2018-04-06] MEDS: TAMSULOSIN (SR) 0.4 MG CAP PO (21:10)
[2018-04-06] MEDS: FAMOTIDINE 20 MG TAB PO (21:10)
[2018-04-06] MEDS: INSULIN GLARGINE [LANtus] 3 ML PEN SC (21:18)
[2018-04-07 05:56] LABS: ADD MAN DIFF? NO
[2018-04-07 05:59] LABS: WHITE BLOOD COUNT 7.4 10^3/ul (4.8-10.8)
[2018-04-07 05:59] LABS: BASOPHILS % 0.3 % (0.0-2.0); EOSINOPHILS # 0.2 10^3/ul (0.0-0.5); HEMATOCRIT 24.2 % (42.0-52.0); HEMOGLOBIN 7.8 g/dl (14.0-18.0); LYMPHOCYTES # 2.6 10^3/ul (0.8-2.9); LYMPHOCYTES % 34.6 % (15.0-51.0); MEAN CORPUSCULAR HEMOGLOBIN 27.3 pg (29.0-33.0); MEAN CORPUSCULAR HGB CONC 32.2 g/dl (32.0-37.0); MEAN CORPUSCULAR VOLUME 84.6 fl (82.0-101.0); MONOCYTE # 0.4 10^3/ul (0.3-0.9); MONOCYTES % 5.9 % (0.0-11.0); NEUTROPHIL # 4.2 10^3/ul (1.6-7.5); NEUTROPHILS % 55.9 % (39.0-77.0); PLATELET COUNT 270 10^3/UL (140-415); RED BLOOD COUNT 2.86 10^6/ul (4.70-6.10)
[2018-04-07 06:26] LABS: ALBUMIN 3.1 g/dl (3.3-4.9); ANION GAP 14 (8-16); BLOOD UREA NITROGEN 39 mg/dl (7-20); CALCIUM 8.8 mg/dl (8.4-10.2); CARBON DIOXIDE 25 mmol/L (21-31); CHLORIDE 108 mmol/L (97-110); CREATININE 1.85 mg/dl (0.61-1.24); GLUCOSE 60 mg/dl (70-220); MAGNESIUM 2.1 mg/dl (1.7-2.5); PHOSPHORUS 4.4 mg/dl (2.5-4.9); POTASSIUM 4.4 mmol/L (3.5-5.1); SODIUM 143 mmol/L (135-144)
[2018-04-07] MEDS: INSULIN ASPART [NOVOLOG] 3 ML PEN SC ×3 (08:15→17:25)
[2018-04-07] MEDS: DEXTROSE 5%-0.45% NACL 1,000 ML IV ×2 (09:26→16:36)
[2018-04-07] MEDS: ALLOPURINOL 100 MG TAB PO (09:33)
[2018-04-07] MEDS: MAGNESIUM HYDROXIDE 30ML CUP PO (09:33)
[2018-04-07] MEDS: NIFEdipine (XL) 30 MG TAB PO (09:34)
[2018-04-07] MEDS: SODIUM HYPOCHLORITE 1/40% 1L IRRIG IRR (10:04)
[2018-04-07] MEDS: ERTAPENEM SODIUM 1 GM in SOD CHLORIDE 0.9% 100 ML IVPB (17:15)
[2018-04-07] MEDS: TAMSULOSIN (SR) 0.4 MG CAP PO (20:14)
[2018-04-07] MEDS: FAMOTIDINE 20 MG TAB PO (20:14)
== END 2018-04-07 20:35 | disposition home health service (06) | DRG 853 ==
LOC: MS2 03-26 11:50 → FTE 06:15 → ICU 08:03
PROC: 0VT90ZZ Resection of Right Testis, Open Approach (ICD-10-PCS; principal; 2018-03-25 17:30)
PROC: 0VBJ0ZZ Excision of Right Epididymis, Open Approach (ICD-10-PCS; 2018-03-25 17:30)
PROC: 0VB5XZZ Excision of Scrotum, External Approach (ICD-10-PCS; 2018-03-25 17:52)
PROC: 30233N1 Transfusion of Nonautologous Red Blood Cells into Peripheral Vein, Percutaneous Approach (ICD-10-PCS; 2018-03-25 17:52)
PROC: 0V9 Male Reproductive System, Drainage (ICD-10-PCS; 2018-03-25 17:52)
PROC: 0W2JX0Z Change Drainage Device in Pelvic Cavity, External Approach (ICD-10-PCS; 2018-03-25 17:52)
DX: A41.9 Sepsis, unspecified organism (principal); N17.0 Acute kidney failure with tubular necrosis; E11.52 Type 2 diabetes mellitus with diabetic peripheral angiopathy with gangrene; N18.4 Chronic kidney disease, stage 4 (severe); I13.0 Hypertensive heart and chronic kidney disease with heart failure and stage 1 through stage 4 chronic kidney disease, or unspecified chronic kidney disease; K52.1 Toxic gastroenteritis and colitis; N49.3 Fournier gangrene; R65.20 Severe sepsis without septic shock; E11.621 Type 2 diabetes mellitus with foot ulcer; E11.69 Type 2 diabetes mellitus with other specified complication; E11.22 Type 2 diabetes mellitus with diabetic chronic kidney disease; D63.1 Anemia in chronic kidney disease; E87.5 Hyperkalemia; Z79.4 Long term (current) use of insulin; E11.21 Type 2 diabetes mellitus with diabetic nephropathy; N28.1 Cyst of kidney, acquired; I50.9 Heart failure, unspecified; E11.610 Type 2 diabetes mellitus with diabetic neuropathic arthropathy; I25.10 Atherosclerotic heart disease of native coronary artery without angina pectoris; N49.2 Inflammatory disorders of scrotum; N45.3 Epididymo-orchitis; E11.65 Type 2 diabetes mellitus with hyperglycemia; B96.20 Unspecified Escherichia coli [E. coli] as the cause of diseases classified elsewhere; M21.071 Valgus deformity, not elsewhere classified, right ankle; E79.0 Hyperuricemia without signs of inflammatory arthritis and tophaceous disease; T36.95XA Adverse effect of unspecified systemic antibiotic, initial encounter; Y92.239 Unspecified place in hospital as the place of occurrence of the external cause; L97.519 Non-pressure chronic ulcer of other part of right foot with unspecified severity; N49.0 Inflammatory disorders of seminal vesicle
CPT/HCPCS: 36415; 36430; 36600; 71045; 74176; 75989; 77012; 80048; 80053; 80061; 80069; 81001; 82803; 82962; 83036; 83605; 83690; 83735; 84100; 84132; 84439; 84443; 85025; 85610; 85730; 86850; 86900; 86901; 86920; 87040; 87070; 87075; 87081; 88304; 88305; 93005; 94664; 96374; 96375; 96376; 99291-25

== ENCOUNTER 2018-11-11 14:43 | Inpatient (IN) | payer OTHER ==
[~2018-11-11 14:43] MED LIST: EPINEPHrine 0.1 MG/ML SYG; NA BICARBONATE 8.4% 50 ML SYG; SUCCINYLCHOLINE CHLORIDE 100 MG/5 ML SYG IV
[2018-11-11 17:11] LABS: ABNORMAL IP MESSAGE 1; HEMATOCRIT 28.5 % (42.0-52.0); HEMOGLOBIN 8.9 g/dl (14.0-18.0); MEAN CORPUSCULAR HEMOGLOBIN 27.3 pg (29.0-33.0); MEAN CORPUSCULAR HGB CONC 31.2 g/dl (32.0-37.0); MEAN CORPUSCULAR VOLUME 87.4 fl (82.0-101.0); MEAN PLATELET VOLUME 10.3 fl (7.4-10.4); PLATELET COUNT 340 10^3/UL (140-415); POSITIVE DIFF @See below; RED BLOOD COUNT 3.26 10^6/ul (4.70-6.10); RED CELL DISTRIBUTION WIDTH 14.7 % (11.5-14.5)
[2018-11-11 17:11] LABS: WHITE BLOOD COUNT 25.6 10^3/ul (4.8-10.8)
[2018-11-11 17:13] LABS: ADD MAN DIFF? YES
[2018-11-11 17:14] LABS: PATH REVIEW? YES
[2018-11-11] MEDS: morphine 4 MG/ML VIAL IV (17:35)
[2018-11-11] MEDS: SOD CHLORIDE 0.9% 1,000 ML IV ×3 (17:35→20:00)
[2018-11-11] MEDS: ONDANSETRON 4 MG INJ IV (17:35)
[2018-11-11 17:38] LABS: ALANINE AMINOTRANSFERASE < 6 IU/L (13-69); ALBUMIN 3.7 g/dl (3.3-4.9); ALBUMIN/GLOBULIN RATIO 0.92; ALKALINE PHOSPHATASE 145 IU/L (42-121); ANION GAP 18 (5-13); ASPARTATE AMINO TRANSFERASE 21 IU/L (15-46); BILIRUBIN,INDIRECT 0.1 mg/dl (0-1.1); BILIRUBIN,TOTAL 0.1 mg/dl (0.2-1.3); BLOOD UREA NITROGEN 59 mg/dl (7-20); CARBON DIOXIDE 17 mmol/L (21-31); CHLORIDE 98 mmol/L (97-110); CREATININE 4.89 mg/dl (0.61-1.24); Estimated GFR 12 mL/min (>60); GLUCOSE 360 mg/dl (70-220); LIPASE 57 U/L (23-300); SODIUM 133 mmol/L (135-144); TOTAL PROTEIN 7.7 g/dl (6.1-8.1)
[2018-11-11] MEDS ORDERED: DEXTROSE 50% 50 ML SYRINGE IV ×5 (18:00→19:30)
[2018-11-11] MEDS: NA POLYST SULFON 15 GM/60 ML BTL PO (18:03)
[2018-11-11] MEDS ORDERED: SODIUM BICARBONATE (IV ADD) 50 ML (18:06)
[2018-11-11] MEDS: INSULIN REGULAR, HUMAN 100 UNIT/1 ML 3ML VIAL IVP (18:13)
[2018-11-11 18:14] LABS: ANISOCYTOSIS 1+ (0-0); BAND NEUTROPHILS #M 6.1 10^3/ul (0.0-0.6); BAND NEUTROPHILS % (M) 24 % (0-4); BURR CELLS 1+ (0-0); GIANT THROMBO% (M) 1 % (0-0); LYMPHOCYTES #M 0.7 10^3/ul (0.8-2.9); LYMPHOCYTES % (M) 3 % (15-51); MICROCYTOSIS 1+ (0-0); MONOCYTES % (M) 4 % (0-11); OVALOCYTES 1+ (0-0); PLATELET ESTIMATE NORMAL; POIKILOCYTOSIS 1+ (0-0); POLYCHROMASIA 1+ (0-0); SEG NEUT #M 19.2 10^3/ul (1.6-7.5); SEGMENTED NEUTROPHILS (M) % 69 % (39-77); SMUDGE%M 1 % (0-0); TEAR DROP CELLS 1+ (0-0)
[2018-11-11] MEDS: DEXTROSE 50% 50 ML SYRINGE IV (18:16)
[2018-11-11] MEDS: NA BICARBONATE 8.4% 50 ML SYG IV (18:22)
[2018-11-11 18:26] LABS: MODE ROOM AIR; MetHgb Venous 0.5 %; Sample Type Blood venous; Site VENOUS LINE; Venous COHb 0.1 %; Venous Fraction OxyHgb 59.6 %; Venous Total Hemglobin 8.9 g/dl
[2018-11-11] MEDS ORDERED: NS + KCL 40 MEQ 1,000 ML IV (18:29)
[2018-11-11] MEDS ORDERED: D10/0.45% NACL + KCL 40 MEQ 1,000 ML IV (18:29)
[2018-11-11] MEDS ORDERED: D10/0.45% NACL + KCL 30 MEQ 1,000 ML IV (18:29)
[2018-11-11] MEDS ORDERED: NS + KCL 30 MEQ 1,000 ML IV ×2 (18:29→19:29)
[2018-11-11] MEDS: CALCIUM GLUCONATE 10% 1 GM in DEXTROSE 5% 100 ML IVPB (18:38)
[2018-11-11] MEDS: LACTATED RINGER'S 900 ML IV (18:55)
[2018-11-11 19:24] LABS: HEMOGLOBIN A1C 7.6 % (0-5.9)
[2018-11-11 19:28] LABS: ADD UMIC YES; UR ASCORBIC ACID NEGATIVE (NEGATIVE); UR BACTERIA MANY /HPF (NONE SEEN); UR BILIRUBIN (Dip) NEGATIVE (NEGATIVE); UR BLOOD (Dip) 2+ mg/dL (NEGATIVE); UR CLARITY SLIGHTLY CLOUDY (CLEAR); UR COLOR YELLOW (YELLOW); UR GLUCOSE (Dip) 1+ mg/dL (NEGATIVE); UR KETONES (Dip) NEGATIVE (NEGATIVE); UR LEUKOCYTE ESTERASE (Dip) 3+ Leu/ul (NEGATIVE); UR NITRITE (Dip) NEGATIVE (NEGATIVE); UR RBC 5 /HPF (0-5); UR SPECIFIC GRAVITY (Dip) 1.013 (1.003-1.030); UR TOTAL PROTEIN (Dip) 2+ mg/dl (NEGATIVE); UR UROBILINOGEN (Dip) NEGATIVE (NEGATIVE); UR WBC 79 /HPF (0-5)
[2018-11-11] MEDS ORDERED: DEXTROSE 10 %/0.45 % NACL 1,000 ML IV (19:29)
[2018-11-11] MEDS ORDERED: SOD CHLORIDE 0.9% 1,000 ML IV ×2 (19:29)
[2018-11-11] MEDS: CEFTRIAXONE 1 GM/50 ML (PMX) 50 ML IVPB (19:33)
[2018-11-11] MEDS: INSULIN REGULAR, HUMAN 100 UNIT in SOD CHLORIDE 0.9% 100 ML IV (19:39)
[2018-11-11] MEDS: ACCU-CHEK XX ×5 (20:11→23:41)
[2018-11-11 20:54] LABS: MODE ROOM AIR; MetHgb Venous 0.6 %; Sample Type Blood venous; Site VENOUS LINE; Venous COHb 0.6 %; Venous Oxygen Sat 48.6 mmHG (55.0-75.0); Venous Total Hemglobin 8.6 g/dl
[2018-11-11] MEDS: DEXTROSE 10 %/0.45 % NACL 1,000 ML IV (21:00)
[2018-11-11] MEDS: GEMFIBROZIL 600 MG TAB PO (21:28)
[2018-11-11] MEDS: TAMSULOSIN (SR) 0.4 MG CAP PO (21:28)
[2018-11-11 21:46] LABS: ANION GAP 15 (5-13); BLOOD UREA NITROGEN 55 mg/dl (7-20); CALCIUM 8.9 mg/dl (8.4-10.2); CARBON DIOXIDE 14 mmol/L (21-31); CHLORIDE 104 mmol/L (97-110); CREATININE 4.66 mg/dl (0.61-1.24); Estimated GFR 13 mL/min (>60); GLUCOSE 249 mg/dl (70-220); MAGNESIUM 1.8 mg/dl (1.7-2.5); PHOSPHORUS 4.9 mg/dl (2.5-4.9); POTASSIUM 5.7 mmol/L (3.5-5.1); SODIUM 133 mmol/L (135-144)
[2018-11-11 22:33] LABS: MODE ROOM AIR; MetHgb Venous 0.5 %; Sample Type Blood venous; Site VENOUS LINE; Venous COHb 0.1 %; Venous Fraction OxyHgb 71.6 %; Venous Total Hemglobin 8.6 g/dl
[2018-11-11 22:50] LABS: ANION GAP 17 (5-13); BLOOD UREA NITROGEN 55 mg/dl (7-20); CALCIUM 8.4 mg/dl (8.4-10.2); CARBON DIOXIDE 15 mmol/L (21-31); CHLORIDE 103 mmol/L (97-110); CREATININE 4.55 mg/dl (0.61-1.24); Estimated GFR 13 mL/min (>60); GLUCOSE 181 mg/dl (70-220); MAGNESIUM 1.6 mg/dl (1.7-2.5); PHOSPHORUS 3.8 mg/dl (2.5-4.9); POTASSIUM 5.4 mmol/L (3.5-5.1); SODIUM 135 mmol/L (135-144)
[2018-11-11] MEDS: HEPARIN 5,000 UNIT/1 ML VIAL SC (23:18)
[2018-11-11] MEDS: FAMOTIDINE 20 MG TAB PO (23:19)
[2018-11-11] MEDS: FERROUS SULFATE (EC) 325 MG TAB PO (23:19)
[2018-11-12] MEDS: ACCU-CHEK XX ×23 (00:50→23:00)
[2018-11-12] MEDS: SODIUM CHLORIDE 0.9% 500 ML BAG IV* (00:54)
[2018-11-12] MEDS: PROPOFOL 100 ML IV ×3 (00:59→23:00)
[2018-11-12 01:03] LABS: ABNORMAL IP MESSAGE 1; HEMATOCRIT 23.6 % (42.0-52.0); HEMOGLOBIN 7.3 g/dl (14.0-18.0); MEAN CORPUSCULAR HEMOGLOBIN 27.1 pg (29.0-33.0); MEAN CORPUSCULAR HGB CONC 30.9 g/dl (32.0-37.0); MEAN CORPUSCULAR VOLUME 87.7 fl (82.0-101.0); MEAN PLATELET VOLUME 9.8 fl (7.4-10.4); NUCLEATED RED BLOOD CELLS% 0.3 /100WBC (0.0-0.0); PLATELET COUNT 216 10^3/UL (140-415); POSITIVE DIFF @See below; RED BLOOD COUNT 2.69 10^6/ul (4.70-6.10); RED CELL DISTRIBUTION WIDTH 14.9 % (11.5-14.5)
[2018-11-12 01:03] LABS: WHITE BLOOD COUNT 13.9 10^3/ul (4.8-10.8)
[2018-11-12 01:09] LABS: ADD MAN DIFF? YES
[2018-11-12 01:19] LABS: ALANINE AMINOTRANSFERASE 11 IU/L (13-69); ALBUMIN/GLOBULIN RATIO 0.83; ALKALINE PHOSPHATASE 106 IU/L (42-121); ANION GAP 15 (5-13); ASPARTATE AMINO TRANSFERASE 14 IU/L (15-46); BLOOD UREA NITROGEN 55 mg/dl (7-20); CALCIUM 9.6 mg/dl (8.4-10.2); CARBON DIOXIDE 18 mmol/L (21-31); CHLORIDE 103 mmol/L (97-110); CREATININE 4.73 mg/dl (0.61-1.24); Estimated GFR 12 mL/min (>60); GLUCOSE 105 mg/dl (70-220); POTASSIUM 4.9 mmol/L (3.5-5.1); SODIUM 136 mmol/L (135-144); TOTAL PROTEIN 6.6 g/dl (6.1-8.1)
[2018-11-12 01:22] LABS: PROTIME 23.6 Sec (11.9-14.9); PT RATIO 1.8
[2018-11-12 01:23] LABS: PARTIAL THROMBOPLASTIN TIME 43.3 Sec (23.0-35.0)
[2018-11-12 01:30] LABS: ACANTHOCYTES 1+ (0-0); ANISOCYTOSIS 2+ (0-0); BAND NEUTROPHILS #M 2.7 10^3/ul (0.0-0.6); BAND NEUTROPHILS % (M) 20 % (0-4); BURR CELLS 1+ (0-0); LYMPHOCYTES #M 0.4 10^3/ul (0.8-2.9); LYMPHOCYTES % (M) 3 % (15-51); METAMYELOCYTES #M 0.1 10^3/ul (0.0-0.0); METAMYELOCYTES %M 1 % (0-0); MICROCYTOSIS 2+ (0-0); MONOCYTE #M 0.2 10^3/ul (0.3-0.9); MONOCYTES % (M) 2 % (0-11); PLATELET ESTIMATE NORMAL; POIKILOCYTOSIS 2+ (0-0); POLYCHROMASIA 3+ (0-0); REACTIVE LYMPHOCYTES #M 0.4 10^3/ul (0.0-0.0); REACTIVE LYMPHOCYTES% (M) 3 % (0-0); SEG NEUT #M 10.2 10^3/ul (1.6-7.5); SEGMENTED NEUTROPHILS (M) % 71 % (39-77); SMUDGE%M 17 % (0-0); TARGET CELLS 1+ (0-0); TROPONIN-I 0.058 ng/ml (0.000-0.120)
[2018-11-12 02:00] LABS: AADO2 Arterial 611.3 mmHg (7.0-24.0); Allen Test ACCEPTAB; Arterial Base Excess -6.7 mmol/L (-3.0-3); Arterial COHb 0.1 % (0.0-3.0); Arterial Fraction of Oxyhgb 90.5 % (93.0-99.0); Arterial HCO3 19.3 mmol/L (22.0-26.0); Arterial MetHb 0.5 % (0.0-1.5); Arterial pCO2 40.3 mmhg (35-45); MODE VENT - AC; Site Right Radial
[2018-11-12] MEDS: VECURONIUM 100 MG in DEXTROSE 5% 100 ML IV ×2 (02:15→10:15)
[2018-11-12] MEDS: D10/0.45% NACL + KCL 30 MEQ 1,000 ML IV (03:49)
[2018-11-12 04:17] LABS: ANION GAP 10 (5-13); BLOOD UREA NITROGEN 57 mg/dl (7-20); CALCIUM 9.2 mg/dl (8.4-10.2); CARBON DIOXIDE 18 mmol/L (21-31); CHLORIDE 107 mmol/L (97-110); CREATININE 4.88 mg/dl (0.61-1.24); Estimated GFR 12 mL/min (>60); GLUCOSE 92 mg/dl (70-220); MAGNESIUM 1.7 mg/dl (1.7-2.5); POTASSIUM 4.5 mmol/L (3.5-5.1); SODIUM 135 mmol/L (135-144)
[2018-11-12 04:53] LABS: ABNORMAL IP MESSAGE 1; HEMATOCRIT 22.1 % (42.0-52.0); MEAN CORPUSCULAR HEMOGLOBIN 27.5 pg (29.0-33.0); MEAN CORPUSCULAR HGB CONC 30.8 g/dl (32.0-37.0); MEAN CORPUSCULAR VOLUME 89.5 fl (82.0-101.0); MEAN PLATELET VOLUME 10.3 fl (7.4-10.4); NUCLEATED RED BLOOD CELLS% 0.1 /100WBC (0.0-0.0); PLATELET COUNT 223 10^3/UL (140-415); POSITIVE DIFF @See below; RED BLOOD COUNT 2.47 10^6/ul (4.70-6.10); RED CELL DISTRIBUTION WIDTH 14.7 % (11.5-14.5)
[2018-11-12 04:53] LABS: WHITE BLOOD COUNT 17.1 10^3/ul (4.8-10.8)
[2018-11-12 04:55] LABS: ADD MAN DIFF? YES; HEMOGLOBIN 6.8 g/dl (14.0-18.0)
[2018-11-12 05:18] LABS: AADO2 Arterial 574.9 mmHg (7.0-24.0); Allen Test ACCEPTAB; Arterial Base Excess -8.1 mmol/L (-3.0-3); Arterial Blood Gas Oxygen Sat 97.5 mmHG (95.0-98.0); Arterial COHb 0.3 % (0.0-3.0); Arterial Fraction of Oxyhgb 96.7 % (93.0-99.0); Arterial HCO3 18.9 mmol/L (22.0-26.0); Arterial MetHb 0.5 % (0.0-1.5); Arterial pCO2 41.7 mmhg (35-45); MODE VENT - AC; Site Right Radial; Temperature 35.2 C
[2018-11-12 06:37] LABS: ANION GAP 16 (5-13); BLOOD UREA NITROGEN 55 mg/dl (7-20); CALCIUM 8.9 mg/dl (8.4-10.2); CARBON DIOXIDE 17 mmol/L (21-31); CHLORIDE 103 mmol/L (97-110); CREATININE 4.74 mg/dl (0.61-1.24); Estimated GFR 12 mL/min (>60); GLUCOSE 120 mg/dl (70-220); MAGNESIUM 1.7 mg/dl (1.7-2.5); POTASSIUM 4.7 mmol/L (3.5-5.1); SODIUM 136 mmol/L (135-144)
[2018-11-12 06:48] LABS: TROPONIN-I 0.191 ng/ml (0.000-0.120)
[2018-11-12 07:23] LABS: ANISOCYTOSIS 2+ (0-0); BAND NEUTROPHILS #M 5.9 10^3/ul (0.0-0.6); BAND NEUTROPHILS % (M) 35 % (0-4); BURR CELLS 1+ (0-0); LYMPHOCYTES #M 1.1 10^3/ul (0.8-2.9); LYMPHOCYTES % (M) 7 % (15-51); METAMYELOCYTES #M 0.3 10^3/ul (0.0-0.0); METAMYELOCYTES %M 2 % (0-0); MICROCYTOSIS 2+ (0-0); MONOCYTE #M 0.1 10^3/ul (0.3-0.9); MONOCYTES % (M) 1 % (0-11); MYELOCYTES #M 0.1 10^3/ul (0.0-0.0); MYELOCYTES % (M) 1 % (0-0); OVALOCYTES 1+ (0-0); PLATELET ESTIMATE NORMAL; POIKILOCYTOSIS 2+ (0-0); POLYCHROMASIA 1+ (0-0); SEG NEUT #M 10.2 10^3/ul (1.6-7.5); SEGMENTED NEUTROPHILS (M) % 54 % (39-77); SMUDGE%M 2 % (0-0)
[2018-11-12 07:27] LABS: IMMEDIATE SPIN CROSSMATCH 1 1
[2018-11-12] MEDS ORDERED: INSULIN ASPART [NOVOLOG] 3 ML PEN SC (07:35)
[2018-11-12] MEDS: INSULIN REGULAR, HUMAN 100 UNIT in SOD CHLORIDE 0.9% 100 ML IV (08:08)
[2018-11-12] MEDS ORDERED: DEXTROSE 50% 50 ML SYRINGE IV ×2 (09:00)
[2018-11-12] MEDS: FERROUS SULFATE (EC) 325 MG TAB PO (09:00)
[2018-11-12] MEDS: GEMFIBROZIL 600 MG TAB PO ×2 (09:00→21:00)
[2018-11-12] MEDS: HEPARIN 5,000 UNIT/1 ML VIAL SC ×2 (09:00→21:00)
[2018-11-12 09:18] LABS: ANION GAP 13 (5-13); BLOOD UREA NITROGEN 57 mg/dl (7-20); CALCIUM 9.2 mg/dl (8.4-10.2); CARBON DIOXIDE 18 mmol/L (21-31); CHLORIDE 105 mmol/L (97-110); CREATININE 4.57 mg/dl (0.61-1.24); Estimated GFR 13 mL/min (>60); GLUCOSE 74 mg/dl (70-220); MAGNESIUM 1.8 mg/dl (1.7-2.5); SODIUM 136 mmol/L (135-144)
[2018-11-12 09:18] LABS: PHOSPHORUS 4.8 mg/dl (2.5-4.9)
[2018-11-12] MEDS: DEXTROSE 5%-0.45% NACL 1,000 ML IV (09:23)
[2018-11-12] MEDS: PIPER-TAZO 2.25 GM (PMX) 50 ML IVPB ×3 (09:58→21:40)
[2018-11-12] MEDS ORDERED: PROPOFOL 100 ML (10:50)
[2018-11-12] MEDS: NA BICARBONATE 8.4% 50 ML SYG IV (10:52)
[2018-11-12] MEDS: SODIUM BICARBONATE (IV ADD) 100 MEQ in DEXTROSE 5% 1,000 ML IV (10:53)
[2018-11-12 11:04] LABS: AADO2 Arterial 160.5 mmHg (7.0-24.0); Arterial Base Excess -7.6 mmol/L (-3.0-3); Arterial Blood Gas Oxygen Sat 99.6 mmHG (95.0-98.0); Arterial COHb 0.3 % (0.0-3.0); Arterial HCO3 18.9 mmol/L (22.0-26.0); Arterial MetHb 0.3 % (0.0-1.5); Arterial pCO2 36.2 mmhg (35-45); MODE VENT - AC; Site Right Brachial; Temperature 33.5 C
[2018-11-12] MEDS ORDERED: PENDING SANTYL ORDER FOR WOUND CARE XX (11:30)
[2018-11-12] MEDS: MAGNESIUM SULFATE 2 GM/50 ML 50 ML IVPB (12:03)
[2018-11-12 12:33] LABS: ADD MAN DIFF? NO
[2018-11-12 12:38] LABS: ABNORMAL IP MESSAGE 1; BASOPHIL # 0.1 10^3/ul (0.0-0.1); BASOPHILS % 0.3 % (0.0-2.0); HEMATOCRIT 28.6 % (42.0-52.0); LYMPHOCYTES # 0.7 10^3/ul (0.8-2.9); LYMPHOCYTES % 3.8 % (15.0-51.0); MEAN CORPUSCULAR HEMOGLOBIN 27.5 pg (29.0-33.0); MEAN CORPUSCULAR HGB CONC 31.5 g/dl (32.0-37.0); MEAN CORPUSCULAR VOLUME 87.5 fl (82.0-101.0); MEAN PLATELET VOLUME 10.5 fl (7.4-10.4); MONOCYTES % 5.2 % (0.0-11.0); NEUTROPHIL # 15.3 10^3/ul (1.6-7.5); NEUTROPHILS % 82.9 % (39.0-77.0); NUCLEATED RED BLOOD CELLS% 0.1 /100WBC (0.0-0.0); PLATELET COUNT 215 10^3/UL (140-415); POSITIVE DIFF @See below; RED BLOOD COUNT 3.27 10^6/ul (4.70-6.10); RED CELL DISTRIBUTION WIDTH 14.9 % (11.5-14.5)
[2018-11-12 12:38] LABS: WHITE BLOOD COUNT 18.4 10^3/ul (4.8-10.8)
[2018-11-12 13:02] LABS: AMYLASE 37 U/L (11-123); ANION GAP 12 (5-13); BLOOD UREA NITROGEN 57 mg/dl (7-20); CARBON DIOXIDE 22 mmol/L (21-31); CHLORIDE 103 mmol/L (97-110); Estimated GFR 14 mL/min (>60); GLUCOSE 144 mg/dl (70-220); LIPASE 19 U/L (23-300); MAGNESIUM 1.9 mg/dl (1.7-2.5); PHOSPHORUS 5.1 mg/dl (2.5-4.9); POTASSIUM 4.7 mmol/L (3.5-5.1); SODIUM 137 mmol/L (135-144)
[2018-11-12 13:08] LABS: PROTIME 24.5 Sec (11.9-14.9); PT RATIO 1.9
[2018-11-12 13:09] LABS: PARTIAL THROMBOPLASTIN TIME 36.6 Sec (23.0-35.0)
[2018-11-12 13:14] LABS: TROPONIN-I 0.206 ng/ml (0.000-0.120)
[2018-11-12 15:46] LABS: SODIUM,URINE RANDOM 91 mmol/L (30-90)
[2018-11-12 16:01] LABS: CREATININE,URINE RANDOM 31.21 mg/dl (20-370); PROTEIN/CREAT RATIO 3.97 RATIO
[2018-11-12] MEDS: CEFTRIAXONE 1 GM/50 ML (PMX) 50 ML IVPB (17:54)
[2018-11-12 18:11] LABS: AADO2 Arterial 208.7 mmHg (7.0-24.0); Arterial Base Excess -2.5 mmol/L (-3.0-3); Arterial Blood Gas Oxygen Sat 99.4 mmHG (95.0-98.0); Arterial COHb 0.3 % (0.0-3.0); Arterial Fraction of Oxyhgb 98.8 % (93.0-99.0); Arterial HCO3 22.1 mmol/L (22.0-26.0); Arterial MetHb 0.3 % (0.0-1.5); Arterial pCO2 37.2 mmhg (35-45); MODE VENT - AC; Site Right Brachial
[2018-11-12] MEDS: ARTIFICIAL TEARS 15 ML OPH BOTH EYES ×2 (18:27→21:40)
[2018-11-12] MEDS: OCULAR LUBRICANT 3.5 GM OPH OINT BOTH EYES (18:28)
[2018-11-12 18:37] LABS: ADD MAN DIFF? NO
[2018-11-12 18:43] LABS: ABNORMAL IP MESSAGE 1; BASOPHILS % 0.2 % (0.0-2.0); HEMATOCRIT 29.8 % (42.0-52.0); HEMOGLOBIN 9.6 g/dl (14.0-18.0); LYMPHOCYTES # 0.7 10^3/ul (0.8-2.9); LYMPHOCYTES % 3.7 % (15.0-51.0); MEAN CORPUSCULAR HGB CONC 32.2 g/dl (32.0-37.0); MEAN CORPUSCULAR VOLUME 86.9 fl (82.0-101.0); MONOCYTE # 0.4 10^3/ul (0.3-0.9); MONOCYTES % 2.2 % (0.0-11.0); NEUTROPHIL # 15.7 10^3/ul (1.6-7.5); PLATELET COUNT 215 10^3/UL (140-415); POSITIVE DIFF @See below; RED BLOOD COUNT 3.43 10^6/ul (4.70-6.10); RED CELL DISTRIBUTION WIDTH 14.8 % (11.5-14.5)
[2018-11-12 18:43] LABS: WHITE BLOOD COUNT 18.2 10^3/ul (4.8-10.8)
[2018-11-12 18:59] LABS: INR 2.19; PROTIME 24.4 Sec (11.9-14.9); PT RATIO 1.9
[2018-11-12 19:00] LABS: PARTIAL THROMBOPLASTIN TIME 41.7 Sec (23.0-35.0)
[2018-11-12 19:09] LABS: AMYLASE 41 U/L (11-123); ANION GAP 14 (5-13); BLOOD UREA NITROGEN 57 mg/dl (7-20); CALCIUM 8.8 mg/dl (8.4-10.2); CARBON DIOXIDE 24 mmol/L (21-31); CHLORIDE 99 mmol/L (97-110); CREATININE 3.94 mg/dl (0.61-1.24); Estimated GFR 15 mL/min (>60); GLUCOSE 173 mg/dl (70-220); LIPASE 14 U/L (23-300); MAGNESIUM 2.4 mg/dl (1.7-2.5); PHOSPHORUS 4.5 mg/dl (2.5-4.9); SODIUM 137 mmol/L (135-144)
[2018-11-12 19:23] LABS: TROPONIN-I 0.172 ng/ml (0.000-0.120)
[2018-11-12 19:44] LABS: BAND NEUTROPHILS % (M) 33 % (0-4); LYMPHOCYTES #M 0.7 10^3/ul (0.8-2.9); LYMPHOCYTES % (M) 4 % (15-51); METAMYELOCYTES #M 0.1 10^3/ul (0.0-0.0); METAMYELOCYTES %M 1 % (0-0); PLATELET ESTIMATE NORMAL; POIKILOCYTOSIS 1+ (0-0); POLYCHROMASIA 1+ (0-0); SEG NEUT #M 12.4 10^3/ul (1.6-7.5); SEGMENTED NEUTROPHILS (M) % 62 % (39-77); SMUDGE%M 4 % (0-0)
[2018-11-12] MEDS: TAMSULOSIN (SR) 0.4 MG CAP PO (21:00)
[2018-11-12] MEDS: FAMOTIDINE 20 MG TAB PO ×2 (21:00→21:36)
[2018-11-12] MEDS ORDERED: VECURONIUM 100 MG in DEXTROSE 5% 100 ML IV (22:00)
[2018-11-12] MEDS: INSULIN HUMAN REGULAR 100 UNIT in SOD CHLORIDE 0.9% 99 ML IV (22:07)
[2018-11-12] MEDS: VECURONIUM 100 MG in D5W 100 ML IV (22:10)
[2018-11-12 23:21] LABS: Allen Test ACCEPTAB; Arterial Base Excess -2.1 mmol/L (-3.0-3); Arterial Blood Gas Oxygen Sat 99.3 mmHG (95.0-98.0); Arterial COHb 0.3 % (0.0-3.0); Arterial Fraction of Oxyhgb 98.7 % (93.0-99.0); Arterial HCO3 21.9 mmol/L (22.0-26.0); Arterial MetHb 0.3 % (0.0-1.5); Arterial pCO2 28.9 mmhg (35-45); MODE VENT - AC; Site Right Radial; Temperature 32.8 C
[2018-11-13 00:19] LABS: ADD MAN DIFF? NO
[2018-11-13 00:30] LABS: ABNORMAL IP MESSAGE 1; BASOPHILS % 0.1 % (0.0-2.0); EOSINOPHILS % 0.1 % (0.0-7.0); HEMATOCRIT 27.8 % (42.0-52.0); LYMPHOCYTES # 0.6 10^3/ul (0.8-2.9); LYMPHOCYTES % 3.4 % (15.0-51.0); MEAN CORPUSCULAR HEMOGLOBIN 27.6 pg (29.0-33.0); MEAN CORPUSCULAR HGB CONC 32.4 g/dl (32.0-37.0); MEAN CORPUSCULAR VOLUME 85.3 fl (82.0-101.0); MEAN PLATELET VOLUME 10.8 fl (7.4-10.4); MONOCYTE # 0.5 10^3/ul (0.3-0.9); MONOCYTES % 2.6 % (0.0-11.0); NEUTROPHIL # 14.7 10^3/ul (1.6-7.5); NEUTROPHILS % 86.2 % (39.0-77.0); NUCLEATED RED BLOOD CELLS% 0.1 /100WBC (0.0-0.0); PLATELET COUNT 203 10^3/UL (140-415); POSITIVE DIFF @See below; RED BLOOD COUNT 3.26 10^6/ul (4.70-6.10); RED CELL DISTRIBUTION WIDTH 14.9 % (11.5-14.5)
[2018-11-13] MEDS: OCULAR LUBRICANT 3.5 GM OPH OINT BOTH EYES ×5 (00:44→23:46)
[2018-11-13 00:56] LABS: ANION GAP 15 (5-13); BLOOD UREA NITROGEN 58 mg/dl (7-20); CALCIUM 8.6 mg/dl (8.4-10.2); CARBON DIOXIDE 23 mmol/L (21-31); CHLORIDE 100 mmol/L (97-110); CREATININE 3.79 mg/dl (0.61-1.24); Estimated GFR 16 mL/min (>60); GLUCOSE 123 mg/dl (70-220); LIPASE 13 U/L (23-300); MAGNESIUM 2.4 mg/dl (1.7-2.5); PHOSPHORUS 4.3 mg/dl (2.5-4.9); POTASSIUM 3.7 mmol/L (3.5-5.1); SODIUM 138 mmol/L (135-144)
[2018-11-13] MEDS: ACCU-CHEK XX ×25 (01:00→23:46)
[2018-11-13 01:04] LABS: AMYLASE < 30 U/L (11-123)
[2018-11-13 01:16] LABS: INR 2.08; PARTIAL THROMBOPLASTIN TIME 44.5 Sec (23.0-35.0); PROTIME 23.5 Sec (11.9-14.9); PT RATIO 1.8
[2018-11-13] MEDS: SODIUM BICARBONATE (IV ADD) 100 MEQ in DEXTROSE 5% 1,000 ML IV (02:07)
[2018-11-13 05:11] LABS: AADO2 Arterial 209.1 mmHg (7.0-24.0); Arterial Base Excess 0.3 mmol/L (-3.0-3); Arterial Blood Gas Oxygen Sat 97.7 mmHG (95.0-98.0); Arterial COHb 0.3 % (0.0-3.0); Arterial Fraction of Oxyhgb 97.2 % (93.0-99.0); Arterial HCO3 24.1 mmol/L (22.0-26.0); Arterial MetHb 0.2 % (0.0-1.5); Arterial pCO2 30.3 mmhg (35-45); MODE VENT - AC; Site Right Brachial
[2018-11-13 05:50] LABS: ADD MAN DIFF? NO
[2018-11-13 05:53] LABS: ABNORMAL IP MESSAGE 1; BASOPHILS % 0.3 % (0.0-2.0); EOSINOPHILS % 0.2 % (0.0-7.0); HEMATOCRIT 29.5 % (42.0-52.0); HEMOGLOBIN 9.5 g/dl (14.0-18.0); LYMPHOCYTES # 0.5 10^3/ul (0.8-2.9); LYMPHOCYTES % 3.5 % (15.0-51.0); MEAN CORPUSCULAR HEMOGLOBIN 27.6 pg (29.0-33.0); MEAN CORPUSCULAR HGB CONC 32.2 g/dl (32.0-37.0); MEAN CORPUSCULAR VOLUME 85.8 fl (82.0-101.0); MEAN PLATELET VOLUME 10.9 fl (7.4-10.4); MONOCYTE # 0.4 10^3/ul (0.3-0.9); MONOCYTES % 2.4 % (0.0-11.0); NEUTROPHIL # 13.2 10^3/ul (1.6-7.5); NEUTROPHILS % 85.9 % (39.0-77.0); PLATELET COUNT 195 10^3/UL (140-415); POSITIVE DIFF @See below; RED BLOOD COUNT 3.44 10^6/ul (4.70-6.10); RED CELL DISTRIBUTION WIDTH 14.8 % (11.5-14.5)
[2018-11-13 05:53] LABS: WHITE BLOOD COUNT 15.3 10^3/ul (4.8-10.8)
[2018-11-13 06:27] LABS: INR 1.95; PROTIME 22.3 Sec (11.9-14.9); PT RATIO 1.7
[2018-11-13 06:28] LABS: PARTIAL THROMBOPLASTIN TIME 42.2 Sec (23.0-35.0)
[2018-11-13 06:37] LABS: URIC ACID 6.5 mg/dl (3.1-7.9)
[2018-11-13 06:37] LABS: AMYLASE < 30 U/L (11-123); ANION GAP 15 (5-13); BLOOD UREA NITROGEN 59 mg/dl (7-20); CALCIUM 8.5 mg/dl (8.4-10.2); CARBON DIOXIDE 24 mmol/L (21-31); CHLORIDE 100 mmol/L (97-110); Estimated GFR 17 mL/min (>60); GLUCOSE 110 mg/dl (70-220); LIPASE 40 U/L (23-300); MAGNESIUM 2.3 mg/dl (1.7-2.5); PHOSPHORUS 4.4 mg/dl (2.5-4.9); POTASSIUM 3.9 mmol/L (3.5-5.1); SODIUM 139 mmol/L (135-144)
[2018-11-13] MEDS: PIPER-TAZO 2.25 GM (PMX) 50 ML IVPB ×3 (07:08→21:33)
[2018-11-13 08:55] LABS: ANISOCYTOSIS 1+ (0-0); BAND NEUTROPHILS #M 6.2 10^3/ul (0.0-0.6); BAND NEUTROPHILS % (M) 41 % (0-4); EOSINOPHILS % (M) 1 % (0-7); LYMPHOCYTES #M 0.4 10^3/ul (0.8-2.9); LYMPHOCYTES % (M) 3 % (15-51); MONOCYTE #M 0.1 10^3/ul (0.3-0.9); MONOCYTES % (M) 1 % (0-11); PLATELET ESTIMATE NORMAL; POLYCHROMASIA 1+ (0-0); REACTIVE LYMPHOCYTES #M 0.4 10^3/ul (0.0-0.0); REACTIVE LYMPHOCYTES% (M) 3 % (0-0); SEG NEUT #M 8.8 10^3/ul (1.6-7.5); SEGMENTED NEUTROPHILS (M) % 51 % (39-77); SMUDGE%M 12 % (0-0)
[2018-11-13] MEDS: HEPARIN 5,000 UNIT/1 ML VIAL SC (09:00)
[2018-11-13] MEDS: FERROUS SULFATE (EC) 325 MG TAB PO (09:00)
[2018-11-13] MEDS: GEMFIBROZIL 600 MG TAB PO (09:00)
[2018-11-13] MEDS: ARTIFICIAL TEARS 15 ML OPH BOTH EYES ×4 (09:54→21:34)
[2018-11-13] MEDS: VECURONIUM 100 MG in D5W 100 ML IV (10:00)
[2018-11-13 10:59] LABS: AADO2 Arterial 149.4 mmHg (7.0-24.0); Allen Test ACCEPTAB; Arterial Base Excess 0.8 mmol/L (-3.0-3); Arterial Blood Gas Oxygen Sat 98.1 mmHG (95.0-98.0); Arterial COHb 0.3 % (0.0-3.0); Arterial Fraction of Oxyhgb 97.7 % (93.0-99.0); Arterial HCO3 24.4 mmol/L (22.0-26.0); Arterial MetHb 0.1 % (0.0-1.5); Arterial pCO2 31.4 mmhg (35-45); MODE VENT - AC; Site Right Radial; Temperature 34.3 C
[2018-11-13] MEDS: PROPOFOL 100 ML IV ×2 (11:00→22:30)
[2018-11-13 12:03] LABS: ADD MAN DIFF? NO
[2018-11-13 12:04] LABS: ABNORMAL IP MESSAGE 1; BASOPHILS % 0.3 % (0.0-2.0); EOSINOPHILS % 0.1 % (0.0-7.0); HEMATOCRIT 28.6 % (42.0-52.0); HEMOGLOBIN 9.4 g/dl (14.0-18.0); LYMPHOCYTES # 0.5 10^3/ul (0.8-2.9); LYMPHOCYTES % 3.2 % (15.0-51.0); MEAN CORPUSCULAR HEMOGLOBIN 27.7 pg (29.0-33.0); MEAN CORPUSCULAR HGB CONC 32.9 g/dl (32.0-37.0); MEAN CORPUSCULAR VOLUME 84.4 fl (82.0-101.0); MEAN PLATELET VOLUME 10.6 fl (7.4-10.4); MONOCYTE # 0.4 10^3/ul (0.3-0.9); MONOCYTES % 2.8 % (0.0-11.0); NEUTROPHIL # 12.4 10^3/ul (1.6-7.5); NEUTROPHILS % 86.4 % (39.0-77.0); NUCLEATED RED BLOOD CELLS% 0.2 /100WBC (0.0-0.0); PLATELET COUNT 177 10^3/UL (140-415); POSITIVE DIFF @See below; RED BLOOD COUNT 3.39 10^6/ul (4.70-6.10); RED CELL DISTRIBUTION WIDTH 14.9 % (11.5-14.5)
[2018-11-13 12:04] LABS: WHITE BLOOD COUNT 14.4 10^3/ul (4.8-10.8)
[2018-11-13 12:24] LABS: ANION GAP 13 (5-13); BLOOD UREA NITROGEN 62 mg/dl (7-20); CALCIUM 8.3 mg/dl (8.4-10.2); CARBON DIOXIDE 25 mmol/L (21-31); CHLORIDE 99 mmol/L (97-110); CREATININE 3.75 mg/dl (0.61-1.24); Estimated GFR 16 mL/min (>60); GLUCOSE 149 mg/dl (70-220); LIPASE 20 U/L (23-300); MAGNESIUM 2.3 mg/dl (1.7-2.5); PHOSPHORUS 5.2 mg/dl (2.5-4.9); POTASSIUM 3.5 mmol/L (3.5-5.1); SODIUM 137 mmol/L (135-144)
[2018-11-13 12:27] LABS: AMYLASE < 30 U/L (11-123)
[2018-11-13 12:38] LABS: TROPONIN-I 0.118 ng/ml (0.000-0.120)
[2018-11-13 12:44] LABS: INR 1.81; PROTIME 21.1 Sec (11.9-14.9); PT RATIO 1.6
[2018-11-13] MEDS: PANTOPRAZOLE 40 MG INJ IV (13:21)
[2018-11-13] MEDS: SOD CHLORIDE 0.9% 1,000 ML IV ×2 (13:21→21:33)
[2018-11-13 18:14] LABS: AADO2 Arterial 154.6 mmHg (7.0-24.0); Arterial Base Excess 0.4 mmol/L (-3.0-3); Arterial Blood Gas Oxygen Sat 97.4 mmHG (95.0-98.0); Arterial COHb 0.3 % (0.0-3.0); Arterial Fraction of Oxyhgb 96.9 % (93.0-99.0); Arterial HCO3 24.1 mmol/L (22.0-26.0); Arterial MetHb 0.2 % (0.0-1.5); Arterial pCO2 34.2 mmhg (35-45); MODE VENT - AC; Site Right Radial
[2018-11-13 18:16] LABS: ADD MAN DIFF? NO
[2018-11-13 18:19] LABS: BASOPHILS % 0.2 % (0.0-2.0); EOSINOPHILS % 0.1 % (0.0-7.0); HEMATOCRIT 29.5 % (42.0-52.0); HEMOGLOBIN 9.6 g/dl (14.0-18.0); LYMPHOCYTES # 0.6 10^3/ul (0.8-2.9); LYMPHOCYTES % 4.2 % (15.0-51.0); MEAN CORPUSCULAR HEMOGLOBIN 27.7 pg (29.0-33.0); MEAN CORPUSCULAR HGB CONC 32.5 g/dl (32.0-37.0); MONOCYTE # 0.4 10^3/ul (0.3-0.9); MONOCYTES % 2.4 % (0.0-11.0); NEUTROPHILS % 88.6 % (39.0-77.0); NUCLEATED RED BLOOD CELLS% 0.3 /100WBC (0.0-0.0); PLATELET COUNT 186 10^3/UL (140-415); POSITIVE DIFF @See below; RED BLOOD COUNT 3.47 10^6/ul (4.70-6.10)
[2018-11-13 18:19] LABS: WHITE BLOOD COUNT 14.7 10^3/ul (4.8-10.8)
[2018-11-13 18:40] LABS: INR 1.66; PARTIAL THROMBOPLASTIN TIME 36.4 Sec (23.0-35.0); PROTIME 19.7 Sec (11.9-14.9); PT RATIO 1.5
[2018-11-13 18:51] LABS: ANION GAP 11 (5-13); BLOOD UREA NITROGEN 63 mg/dl (7-20); CALCIUM 8.3 mg/dl (8.4-10.2); CARBON DIOXIDE 22 mmol/L (21-31); CHLORIDE 101 mmol/L (97-110); CREATININE 3.71 mg/dl (0.61-1.24); Estimated GFR 16 mL/min (>60); GLUCOSE 136 mg/dl (70-220); MAGNESIUM 2.3 mg/dl (1.7-2.5); PHOSPHORUS 5.5 mg/dl (2.5-4.9); POTASSIUM 3.7 mmol/L (3.5-5.1); SODIUM 134 mmol/L (135-144)
[2018-11-13 18:52] LABS: CREATINE KINASE < 20 IU/L (23-200)
[2018-11-13 19:00] LABS: CK-MB 1.42 ng/ml (0.0-2.4)
[2018-11-13 19:04] LABS: TROPONIN-I 0.124 ng/ml (0.000-0.120)
[2018-11-13] MEDS: DOCUSATE SODIUM 100 MG CAP PO (21:00)
[2018-11-13] MEDS: TAMSULOSIN (SR) 0.4 MG CAP PO (21:00)
[2018-11-13] MEDS ORDERED: NORepinephrine 8MG/250 ML (PMX 250 ML (21:08)
[2018-11-13] MEDS: NORepinephrine 8MG/250 ML (PMX 250 ML IV (21:33)
[2018-11-13] MEDS: ATORVASTATIN 20 MG TAB PO (21:38)
[2018-11-13 23:26] LABS: AADO2 Arterial 153.6 mmHg (7.0-24.0); Allen Test ACCEPTAB; Arterial Blood Gas Oxygen Sat 96.8 mmHG (95.0-98.0); Arterial COHb 0.1 % (0.0-3.0); Arterial Fraction of Oxyhgb 96.5 % (93.0-99.0); Arterial HCO3 22.2 mmol/L (22.0-26.0); Arterial MetHb 0.2 % (0.0-1.5); Arterial pCO2 35.7 mmhg (35-45); MODE VENT - AC; Site Right Radial; Temperature 36.9 C
[2018-11-13] MEDS: ACETAMINOPHEN 650MG/20.3ML CUP NGT (23:45)
[2018-11-14 00:43] LABS: ADD MAN DIFF? NO
[2018-11-14 00:46] LABS: WHITE BLOOD COUNT 16.9 10^3/ul (4.8-10.8)
[2018-11-14 00:46] LABS: ABNORMAL IP MESSAGE 1; BASOPHILS % 0.1 % (0.0-2.0); EOSINOPHILS % 0.1 % (0.0-7.0); HEMATOCRIT 29.8 % (42.0-52.0); HEMOGLOBIN 9.4 g/dl (14.0-18.0); LYMPHOCYTES # 0.9 10^3/ul (0.8-2.9); LYMPHOCYTES % 5.2 % (15.0-51.0); MEAN CORPUSCULAR HEMOGLOBIN 27.1 pg (29.0-33.0); MEAN CORPUSCULAR HGB CONC 31.5 g/dl (32.0-37.0); MEAN CORPUSCULAR VOLUME 85.9 fl (82.0-101.0); MEAN PLATELET VOLUME 10.8 fl (7.4-10.4); MONOCYTE # 0.4 10^3/ul (0.3-0.9); MONOCYTES % 2.4 % (0.0-11.0); NEUTROPHIL # 14.5 10^3/ul (1.6-7.5); NEUTROPHILS % 85.4 % (39.0-77.0); PLATELET COUNT 195 10^3/UL (140-415); POSITIVE DIFF @See below; RED BLOOD COUNT 3.47 10^6/ul (4.70-6.10); RED CELL DISTRIBUTION WIDTH 15.2 % (11.5-14.5)
[2018-11-14] MEDS: ACCU-CHEK XX ×23 (01:00→23:00)
[2018-11-14 01:06] LABS: ANION GAP 15 (5-13); BLOOD UREA NITROGEN 60 mg/dl (7-20); CALCIUM 7.6 mg/dl (8.4-10.2); CARBON DIOXIDE 21 mmol/L (21-31); CHLORIDE 102 mmol/L (97-110); CREATININE 3.87 mg/dl (0.61-1.24); Estimated GFR 16 mL/min (>60); GLUCOSE 137 mg/dl (70-220); INR 1.58; MAGNESIUM 2.1 mg/dl (1.7-2.5); PHOSPHORUS 5.7 mg/dl (2.5-4.9); POTASSIUM 3.8 mmol/L (3.5-5.1); PT RATIO 1.5; SODIUM 138 mmol/L (135-144)
[2018-11-14 01:07] LABS: PARTIAL THROMBOPLASTIN TIME 32.1 Sec (23.0-35.0)
[2018-11-14 01:12] LABS: CREATINE KINASE < 20 IU/L (23-200)
[2018-11-14 01:17] LABS: CK-MB 0.85 ng/ml (0.0-2.4)
[2018-11-14] MEDS: SOD CHLORIDE 0.9% 1,000 ML IV (01:30)
[2018-11-14 01:32] LABS: TROPONIN-I 0.127 ng/ml (0.000-0.120)
[2018-11-14 04:45] LABS: WHITE BLOOD COUNT 17.1 10^3/ul (4.8-10.8)
[2018-11-14 04:45] LABS: ABNORMAL IP MESSAGE 1; ADD MAN DIFF? NO; BASOPHILS % 0.2 % (0.0-2.0); EOSINOPHILS % 0.1 % (0.0-7.0); HEMATOCRIT 30.1 % (42.0-52.0); HEMOGLOBIN 9.5 g/dl (14.0-18.0); LYMPHOCYTES # 1.3 10^3/ul (0.8-2.9); LYMPHOCYTES % 7.4 % (15.0-51.0); MEAN CORPUSCULAR HEMOGLOBIN 27.4 pg (29.0-33.0); MEAN CORPUSCULAR HGB CONC 31.6 g/dl (32.0-37.0); MEAN CORPUSCULAR VOLUME 86.7 fl (82.0-101.0); MEAN PLATELET VOLUME 11.1 fl (7.4-10.4); MONOCYTE # 0.4 10^3/ul (0.3-0.9); MONOCYTES % 2.4 % (0.0-11.0); NEUTROPHIL # 14.5 10^3/ul (1.6-7.5); NEUTROPHILS % 84.5 % (39.0-77.0); NUCLEATED RED BLOOD CELLS% 0.1 /100WBC (0.0-0.0); PLATELET COUNT 204 10^3/UL (140-415); POSITIVE DIFF @See below; RED BLOOD COUNT 3.47 10^6/ul (4.70-6.10); RED CELL DISTRIBUTION WIDTH 15.2 % (11.5-14.5)
[2018-11-14 05:02] LABS: ANION GAP 14 (5-13); BLOOD UREA NITROGEN 62 mg/dl (7-20); CALCIUM 7.8 mg/dl (8.4-10.2); CARBON DIOXIDE 22 mmol/L (21-31); CHLORIDE 104 mmol/L (97-110); CREATININE 3.83 mg/dl (0.61-1.24); Estimated GFR 16 mL/min (>60); GLUCOSE 144 mg/dl (70-220); MAGNESIUM 2.1 mg/dl (1.7-2.5); POTASSIUM 3.9 mmol/L (3.5-5.1); SODIUM 140 mmol/L (135-144)
[2018-11-14 05:03] LABS: AADO2 Arterial 150.4 mmHg (7.0-24.0); Allen Test ACCEPTAB; Arterial Base Excess -3.5 mmol/L (-3.0-3); Arterial Blood Gas Oxygen Sat 97.2 mmHG (95.0-98.0); Arterial COHb 0.3 % (0.0-3.0); Arterial Fraction of Oxyhgb 96.5 % (93.0-99.0); Arterial HCO3 20.2 mmol/L (22.0-26.0); Arterial MetHb 0.4 % (0.0-1.5); Arterial pCO2 31.2 mmhg (35-45); MODE VENT - AC; Site Right Radial; Temperature 36.6 C
[2018-11-14 05:05] LABS: INR 1.58; PT RATIO 1.5
[2018-11-14 05:06] LABS: PARTIAL THROMBOPLASTIN TIME 32.6 Sec (23.0-35.0)
[2018-11-14] MEDS: ACETAMINOPHEN 650MG/20.3ML CUP NGT ×2 (06:05→12:18)
[2018-11-14] MEDS: OCULAR LUBRICANT 3.5 GM OPH OINT BOTH EYES (06:06)
[2018-11-14] MEDS: PIPER-TAZO 2.25 GM (PMX) 50 ML IVPB ×3 (06:06→21:15)
[2018-11-14] MEDS: PANTOPRAZOLE 40 MG INJ IV (06:08)
[2018-11-14 08:01] LABS: IRON 32 ug/dl (35-150)
[2018-11-14 08:10] LABS: % IRON SATURATION 21 % SAT (22-52); TOTAL IRON BINDING CAPACITY 151 ug/dl (241-421)
[2018-11-14 08:45] LABS: ANISOCYTOSIS 1+ (0-0); BAND NEUTROPHILS #M 1.3 10^3/ul (0.0-0.6); BAND NEUTROPHILS % (M) 8 % (0-4); BURR CELLS 2+ (0-0); GIANT THROMBO% (M) 2 % (0-0); LYMPHOCYTES #M 0.1 10^3/ul (0.8-2.9); LYMPHOCYTES % (M) 1 % (15-51); MICROCYTOSIS 1+ (0-0); MONOCYTE #M 0.5 10^3/ul (0.3-0.9); MONOCYTES % (M) 3 % (0-11); OVALOCYTES 1+ (0-0); PLATELET ESTIMATE NORMAL; POIKILOCYTOSIS 2+ (0-0); POLYCHROMASIA 2+ (0-0); SEG NEUT #M 15.3 10^3/ul (1.6-7.5); SEGMENTED NEUTROPHILS (M) % 88 % (39-77); SMUDGE%M 42 % (0-0); TEAR DROP CELLS 1+ (0-0)
[2018-11-14] MEDS: ARTIFICIAL TEARS 15 ML OPH BOTH EYES ×2 (09:11→13:09)
[2018-11-14] MEDS: PROPOFOL 100 ML IV ×2 (11:00→23:00)
[2018-11-14] MEDS: ALBUMIN HUMAN 25% 100 ML IV (12:19)
[2018-11-14] MEDS: SOD CHLORIDE 0.9% 500 ML IV (13:00)
[2018-11-14] MEDS: INSULIN HUMAN REGULAR 100 UNIT in SOD CHLORIDE 0.9% 99 ML IV (13:40)
[2018-11-14] MEDS: FUROSEMIDE 40 MG INJ IV (14:09)
[2018-11-14] MEDS: TAMSULOSIN (SR) 0.4 MG CAP PO (21:00)
[2018-11-14] MEDS: FAMOTIDINE 20 MG TAB PO (21:14)
[2018-11-14] MEDS: DOCUSATE SODIUM 10 MG/ML (10ML CUP) NGT (21:14)
[2018-11-14] MEDS: ATORVASTATIN 20 MG TAB PO (21:14)
[2018-11-15] MEDS: ACCU-CHEK XX ×15 (01:16→14:10)
[2018-11-15 04:53] LABS: ADD MAN DIFF? NO
[2018-11-15 04:56] LABS: WHITE BLOOD COUNT 15.4 10^3/ul (4.8-10.8)
[2018-11-15 04:56] LABS: BASOPHILS % 0.1 % (0.0-2.0); EOSINOPHILS % 0.1 % (0.0-7.0); HEMATOCRIT 28.8 % (42.0-52.0); HEMOGLOBIN 8.8 g/dl (14.0-18.0); LYMPHOCYTES # 1.5 10^3/ul (0.8-2.9); LYMPHOCYTES % 9.9 % (15.0-51.0); MEAN CORPUSCULAR HEMOGLOBIN 27.3 pg (29.0-33.0); MEAN CORPUSCULAR HGB CONC 30.6 g/dl (32.0-37.0); MEAN CORPUSCULAR VOLUME 89.4 fl (82.0-101.0); MEAN PLATELET VOLUME 10.9 fl (7.4-10.4); MONOCYTE # 0.5 10^3/ul (0.3-0.9); NEUTROPHIL # 13.3 10^3/ul (1.6-7.5); NEUTROPHILS % 86.1 % (39.0-77.0); PLATELET COUNT 188 10^3/UL (140-415); RED BLOOD COUNT 3.22 10^6/ul (4.70-6.10); RED CELL DISTRIBUTION WIDTH 15.3 % (11.5-14.5)
[2018-11-15 05:23] LABS: AADO2 Arterial 83.1 mmHg (7.0-24.0); ANION GAP 9 (5-13); Arterial Base Excess -2.4 mmol/L (-3.0-3); Arterial Blood Gas Oxygen Sat 96.2 mmHG (95.0-98.0); Arterial COHb 0.3 % (0.0-3.0); Arterial Fraction of Oxyhgb 95.7 % (93.0-99.0); Arterial HCO3 21.9 mmol/L (22.0-26.0); Arterial MetHb 0.2 % (0.0-1.5); Arterial pCO2 35.9 mmhg (35-45); BLOOD UREA NITROGEN 65 mg/dl (7-20); CALCIUM 8.3 mg/dl (8.4-10.2); CARBON DIOXIDE 24 mmol/L (21-31); CHLORIDE 109 mmol/L (97-110); CREATININE 3.97 mg/dl (0.61-1.24); Estimated GFR 15 mL/min (>60); GLUCOSE 192 mg/dl (70-220); MODE VENT - AC; POTASSIUM 3.5 mmol/L (3.5-5.1); SODIUM 142 mmol/L (135-144); Site Right Brachial
[2018-11-15] MEDS: PIPER-TAZO 2.25 GM (PMX) 50 ML IVPB ×3 (05:32→20:52)
[2018-11-15] MEDS: PANTOPRAZOLE 40 MG INJ IV (05:32)
[2018-11-15] MEDS: DOCUSATE SODIUM 10 MG/ML (10ML CUP) NGT ×2 (09:19→20:50)
[2018-11-15] MEDS: FERROUS SULFATE 60 MG/ML 5ML CUP NGT (09:19)
[2018-11-15] MEDS: ASPIRIN 81 MG TAB PO (09:19)
[2018-11-15 10:28] LABS: AADO2 Arterial 65.2 mmHg (7.0-24.0); Allen Test ACCEPTAB; Arterial Base Excess -0.9 mmol/L (-3.0-3); Arterial Blood Gas Oxygen Sat 97.6 mmHG (95.0-98.0); Arterial COHb 0.3 % (0.0-3.0); Arterial Fraction of Oxyhgb 97.1 % (93.0-99.0); Arterial HCO3 23.5 mmol/L (22.0-26.0); Arterial MetHb 0.2 % (0.0-1.5); Arterial pCO2 38.2 mmhg (35-45); Blood Gas PS 10; MODE VENT - CPAP; Site Right Brachial
[2018-11-15] MEDS ORDERED: DEXTROSE 50% 50 ML SYRINGE IV ×2 (14:00)
[2018-11-15] MEDS ORDERED: GLUCOSE GEL 15 GRAM TUBE BUCCAL (14:00)
[2018-11-15] MEDS ORDERED: GLUCAGON 1 MG INJ IM (14:00)
[2018-11-15] MEDS ORDERED: GLUCOSE GEL 15 GRAM TUBE PO ×2 (14:00)
[2018-11-15] MEDS: INSULIN ASPART [NOVOLOG] 3 ML PEN SC ×2 (14:00→17:45)
[2018-11-15] MEDS: NPH, HUMAN INSULIN ISOPHANE 3ML VIAL SC ×2 (14:25→21:07)
[2018-11-15] MEDS: ATORVASTATIN 20 MG TAB PO (20:50)
[2018-11-15] MEDS: TAMSULOSIN (SR) 0.4 MG CAP PO (20:50)
[2018-11-15] MEDS: FAMOTIDINE 20 MG TAB PO (20:50)
[2018-11-16] MEDS: PANTOPRAZOLE 40 MG INJ IV (05:28)
[2018-11-16] MEDS: PIPER-TAZO 2.25 GM (PMX) 50 ML IVPB ×3 (05:28→21:46)
[2018-11-16] MEDS: INSULIN ASPART [NOVOLOG] 3 ML PEN SC ×5 (05:31→20:19)
[2018-11-16] MEDS: NPH, HUMAN INSULIN ISOPHANE 3ML VIAL SC (05:36)
[2018-11-16 06:21] LABS: ADD MAN DIFF? NO
[2018-11-16 06:36] LABS: BASOPHILS % 0.2 % (0.0-2.0); EOSINOPHILS # 0.1 10^3/ul (0.0-0.5); EOSINOPHILS % 0.4 % (0.0-7.0); HEMATOCRIT 28.3 % (42.0-52.0); HEMOGLOBIN 8.6 g/dl (14.0-18.0); LYMPHOCYTES # 1.8 10^3/ul (0.8-2.9); LYMPHOCYTES % 12.8 % (15.0-51.0); MEAN CORPUSCULAR HEMOGLOBIN 27.4 pg (29.0-33.0); MEAN CORPUSCULAR HGB CONC 30.4 g/dl (32.0-37.0); MEAN CORPUSCULAR VOLUME 90.1 fl (82.0-101.0); MEAN PLATELET VOLUME 11.3 fl (7.4-10.4); MONOCYTE # 0.7 10^3/ul (0.3-0.9); MONOCYTES % 5.1 % (0.0-11.0); NEUTROPHIL # 11.1 10^3/ul (1.6-7.5); NEUTROPHILS % 79.8 % (39.0-77.0); PLATELET COUNT 183 10^3/UL (140-415); RED BLOOD COUNT 3.14 10^6/ul (4.70-6.10)
[2018-11-16 06:36] LABS: WHITE BLOOD COUNT 13.9 10^3/ul (4.8-10.8)
[2018-11-16 06:53] LABS: ALANINE AMINOTRANSFERASE 10 IU/L (13-69); ALKALINE PHOSPHATASE 117 IU/L (42-121); ANION GAP 9 (5-13); ASPARTATE AMINO TRANSFERASE 13 IU/L (15-46); BLOOD UREA NITROGEN 65 mg/dl (7-20); CARBON DIOXIDE 26 mmol/L (21-31); CHLORIDE 111 mmol/L (97-110); Estimated GFR 17 mL/min (>60); GLUCOSE 122 mg/dl (70-220); POTASSIUM 3.5 mmol/L (3.5-5.1); SODIUM 146 mmol/L (135-144); TOTAL PROTEIN 6.3 g/dl (6.1-8.1)
[2018-11-16] MEDS: hydrALAzine 20 MG INJ IV (06:58)
[2018-11-16] MEDS: DOCUSATE SODIUM 10 MG/ML (10ML CUP) NGT (09:17)
[2018-11-16] MEDS: FERROUS SULFATE 60 MG/ML 5ML CUP NGT (09:17)
[2018-11-16] MEDS: ASPIRIN 81 MG TAB PO (09:17)
[2018-11-16] MEDS: ENOXAPARIN 30 MG/0.3 ML SYG SC (09:18)
[2018-11-16] MEDS ORDERED: DOCUSATE SODIUM 100 MG CAP PO (10:30)
[2018-11-16] MEDS ORDERED: FUROSEMIDE 40 MG INJ IV (11:00)
[2018-11-16] MEDS ORDERED: FUROSEMIDE 40 MG INJ (11:19)
[2018-11-16] MEDS: AMLODIPINE 10 MG TAB PO (11:23)
[2018-11-16] MEDS: ACCU-CHEK XX (19:35)
[2018-11-16] MEDS: INSULIN GLARGINE [LANTus] (100 UNITS/ML) SYG SC (20:20)
[2018-11-16] MEDS: ATORVASTATIN 20 MG TAB PO (20:23)
[2018-11-16 20:30] LABS: C-REACTIVE PROTEIN 4.9 mg/dl (0.0-0.9)
[2018-11-16 21:04] LABS: ERYTHROCYTE SEDIMENTATION RATE 115 mm/Hr (0-20)
[2018-11-16] MEDS: TAMSULOSIN (SR) 0.4 MG CAP PO (21:46)
[2018-11-17] MEDS: ACCU-CHEK XX ×4 (02:00→20:10)
[2018-11-17 05:40] LABS: WHITE BLOOD COUNT 10.9 10^3/ul (4.8-10.8)
[2018-11-17 05:40] LABS: ABNORMAL IP MESSAGE 1; HEMATOCRIT 27.4 % (42.0-52.0); HEMOGLOBIN 8.5 g/dl (14.0-18.0); MEAN CORPUSCULAR HEMOGLOBIN 27.2 pg (29.0-33.0); MEAN CORPUSCULAR VOLUME 87.8 fl (82.0-101.0); MEAN PLATELET VOLUME 10.4 fl (7.4-10.4); PLATELET COUNT 162 10^3/UL (140-415); POSITIVE DIFF @See below; RED BLOOD COUNT 3.12 10^6/ul (4.70-6.10); RED CELL DISTRIBUTION WIDTH 14.7 % (11.5-14.5)
[2018-11-17 05:43] LABS: ADD MAN DIFF? YES
[2018-11-17 06:09] LABS: ANION GAP 7 (5-13); BLOOD UREA NITROGEN 59 mg/dl (7-20); CARBON DIOXIDE 26 mmol/L (21-31); CHLORIDE 109 mmol/L (97-110); CREATININE 3.33 mg/dl (0.61-1.24); Estimated GFR 19 mL/min (>60); GLUCOSE 68 mg/dl (70-220); POTASSIUM 3.6 mmol/L (3.5-5.1); SODIUM 142 mmol/L (135-144)
[2018-11-17] MEDS: PIPER-TAZO 2.25 GM (PMX) 50 ML IVPB ×3 (07:24→22:28)
[2018-11-17] MEDS: INSULIN ASPART [NOVOLOG] 3 ML PEN SC ×4 (08:00→20:10)
[2018-11-17 08:01] LABS: ANISOCYTOSIS 2+ (0-0); BAND NEUTROPHILS #M 0.2 10^3/ul (0.0-0.6); BAND NEUTROPHILS % (M) 2 % (0-4); EOSINOPHILS % (M) 1 % (0-7); GIANT THROMBO% (M) 1 % (0-0); HYPOCHROMASIA 1+ (0-0); LYMPHOCYTES % (M) 19 % (15-51); MICROCYTOSIS 1+ (0-0); MONOCYTE #M 0.5 10^3/ul (0.3-0.9); MONOCYTES % (M) 5 % (0-11); PLATELET ESTIMATE NORMAL; POIKILOCYTOSIS 1+ (0-0); POLYCHROMASIA 3+ (0-0); SEGMENTED NEUTROPHILS (M) % 73 % (39-77); SMUDGE%M 1 % (0-0)
[2018-11-17] MEDS: AMLODIPINE 5 MG TAB PO (08:26)
[2018-11-17] MEDS: ASPIRIN 81 MG TAB PO (08:26)
[2018-11-17] MEDS: FERROUS SULFATE (EC) 325 MG TAB PO (08:26)
[2018-11-17] MEDS: ENOXAPARIN 30 MG/0.3 ML SYG SC (08:32)
[2018-11-17] MEDS: LACTATED RINGER'S 500 ML IV (18:53)
[2018-11-17] MEDS: TAMSULOSIN (SR) 0.4 MG CAP PO (20:10)
[2018-11-17] MEDS: ATORVASTATIN 20 MG TAB PO (20:10)
[2018-11-17] MEDS: hydrALAzine 20 MG INJ IV (20:19)
[2018-11-17] MEDS: INSULIN GLARGINE [LANTus] (100 UNITS/ML) SYG SC (20:55)
[2018-11-18] MEDS: ACCU-CHEK XX ×3 (02:00→13:54)
[2018-11-18 05:35] LABS: ABNORMAL IP MESSAGE 1; HEMATOCRIT 27.6 % (42.0-52.0); HEMOGLOBIN 8.5 g/dl (14.0-18.0); MEAN CORPUSCULAR HEMOGLOBIN 27.2 pg (29.0-33.0); MEAN CORPUSCULAR HGB CONC 30.8 g/dl (32.0-37.0); MEAN CORPUSCULAR VOLUME 88.5 fl (82.0-101.0); PLATELET COUNT 175 10^3/UL (140-415); POSITIVE DIFF @See below; RED BLOOD COUNT 3.12 10^6/ul (4.70-6.10); RED CELL DISTRIBUTION WIDTH 14.4 % (11.5-14.5)
[2018-11-18 05:35] LABS: WHITE BLOOD COUNT 10.2 10^3/ul (4.8-10.8)
[2018-11-18 05:57] LABS: ANION GAP 8 (5-13); BLOOD UREA NITROGEN 55 mg/dl (7-20); CARBON DIOXIDE 25 mmol/L (21-31); CHLORIDE 105 mmol/L (97-110); CREATININE 2.99 mg/dl (0.61-1.24); Estimated GFR 21 mL/min (>60); GLUCOSE 144 mg/dl (70-220); POTASSIUM 3.7 mmol/L (3.5-5.1); SODIUM 138 mmol/L (135-144)
[2018-11-18 06:03] LABS: ADD MAN DIFF? YES
[2018-11-18 06:04] LABS: CALCIUM 8.7 mg/dl (8.4-10.2)
[2018-11-18] MEDS: PIPER-TAZO 2.25 GM (PMX) 50 ML IVPB (06:10)
[2018-11-18 07:32] LABS: ANISOCYTOSIS 2+ (0-0); BAND NEUTROPHILS #M 0.1 10^3/ul (0.0-0.6); BAND NEUTROPHILS % (M) 1 % (0-4); BASOPHIL #M 0.2 10^3/ul (0.0-0.0); BASOPHILS % (M) 2 % (0-2); EOSINOPHILS % (M) 3 % (0-7); GIANT THROMBO% (M) 1 % (0-0); LYMPHOCYTES #M 1.6 10^3/ul (0.8-2.9); LYMPHOCYTES % (M) 16 % (15-51); MICROCYTOSIS 2+ (0-0); MONOCYTE #M 0.3 10^3/ul (0.3-0.9); MONOCYTES % (M) 3 % (0-11); OVALOCYTES 1+ (0-0); PLATELET ESTIMATE NORMAL; POIKILOCYTOSIS 1+ (0-0); POLYCHROMASIA 3+ (0-0); SEG NEUT #M 7.7 10^3/ul (1.6-7.5); SEGMENTED NEUTROPHILS (M) % 75 % (39-77); SMUDGE%M 2 % (0-0); TEAR DROP CELLS 1+ (0-0)
[2018-11-18] MEDS: INSULIN ASPART [NOVOLOG] 3 ML PEN SC ×6 (07:55→21:00)
[2018-11-18] MEDS: FERROUS SULFATE (EC) 325 MG TAB PO (08:42)
[2018-11-18] MEDS: ASPIRIN 81 MG TAB PO (08:43)
[2018-11-18] MEDS ORDERED: AMLODIPINE 5 MG TAB PO (09:00)
[2018-11-18] MEDS: ENOXAPARIN 30 MG/0.3 ML SYG SC (09:02)
[2018-11-18] MEDS: AMLODIPINE 5 MG TAB PO ×2 (10:18→10:19)
[2018-11-18] MEDS: FUROSEMIDE 20 MG INJ IV (10:20)
[2018-11-18] MEDS: hydrALAzine 20 MG INJ IV (17:40)
[2018-11-18] MEDS: ATORVASTATIN 20 MG TAB PO (20:41)
[2018-11-18] MEDS: TAMSULOSIN (SR) 0.4 MG CAP PO (20:41)
[2018-11-18] MEDS: INSULIN GLARGINE [LANTus] (100 UNITS/ML) SYG SC (20:49)
[2018-11-19] MEDS ORDERED: AMLODIPINE 10 MG TAB PO (09:00)
== END 2018-11-18 22:22 | disposition home or self-care (01) | DRG 853 ==
LOC: E/R 14:43 → ICU 19:49 → 6WM 11-16 23:45
PROC: 5A1945Z Respiratory Ventilation, 24-96 Consecutive Hours (ICD-10-PCS; principal; 2018-11-11)
PROC: 0BH17EZ Insertion of Endotracheal Airway into Trachea, Via Natural or Artificial Opening (ICD-10-PCS; 2018-11-11)
PROC: 5A12012 Performance of Cardiac Output, Single, Manual (ICD-10-PCS; 2018-11-12)
PROC: 05H633Z Insertion of Infusion Device into Left Subclavian Vein, Percutaneous Approach (ICD-10-PCS; 2018-11-12)
PROC: 30233N1 Transfusion of Nonautologous Red Blood Cells into Peripheral Vein, Percutaneous Approach (ICD-10-PCS; 2018-11-12)
PROC: 0JBR0ZZ Excision of Left Foot Subcutaneous Tissue and Fascia, Open Approach (ICD-10-PCS; 2018-11-16)
PROC: 0JBQ0ZZ Excision of Right Foot Subcutaneous Tissue and Fascia, Open Approach (ICD-10-PCS; 2018-11-16)
DX: A41.9 Sepsis, unspecified organism (principal); E11.10 Type 2 diabetes mellitus with ketoacidosis without coma; I46.9 Cardiac arrest, cause unspecified; I21.A1 Myocardial infarction type 2; I50.31 Acute diastolic (congestive) heart failure; J96.01 Acute respiratory failure with hypoxia; N17.0 Acute kidney failure with tubular necrosis; G92 Toxic encephalopathy; R65.21 Severe sepsis with septic shock; N39.0 Urinary tract infection, site not specified; D68.9 Coagulation defect, unspecified; E87.2 Acidosis; I13.0 Hypertensive heart and chronic kidney disease with heart failure and stage 1 through stage 4 chronic kidney disease, or unspecified chronic kidney disease; D63.1 Anemia in chronic kidney disease; D50.9 Iron deficiency anemia, unspecified; E11.65 Type 2 diabetes mellitus with hyperglycemia; E87.5 Hyperkalemia; E11.22 Type 2 diabetes mellitus with diabetic chronic kidney disease; E78.5 Hyperlipidemia, unspecified; E11.610 Type 2 diabetes mellitus with diabetic neuropathic arthropathy; E11.42 Type 2 diabetes mellitus with diabetic polyneuropathy; E11.622 Type 2 diabetes mellitus with other skin ulcer; E11.621 Type 2 diabetes mellitus with foot ulcer; E11.51 Type 2 diabetes mellitus with diabetic peripheral angiopathy without gangrene; E79.0 Hyperuricemia without signs of inflammatory arthritis and tophaceous disease; I48.91 Unspecified atrial fibrillation; L97.529 Non-pressure chronic ulcer of other part of left foot with unspecified severity; L97.519 Non-pressure chronic ulcer of other part of right foot with unspecified severity; M25.372 Other instability, left ankle; N40.0 Benign prostatic hyperplasia without lower urinary tract symptoms; N18.3 Chronic kidney disease, stage 3 (moderate); R00.1 Bradycardia, unspecified; Z89.431 Acquired absence of right foot; Z87.891 Personal history of nicotine dependence; Z79.4 Long term (current) use of insulin
CPT/HCPCS: 31500; 36415; 36430; 36600; 71045; 73610; 73610-RT; 73630; 73630-LT; 73718; 73721; 74176; 80048; 80053; 81001; 81003; 82150; 82550; 82553; 82570; 82803; 82962; 83036; 83540; 83605; 83690; 83735; 84100; 84300; 84484; 84560; 85025; 85384; 85610; 85651; 85730; 86140; 86850; 86900; 86901; 86920; 87040; 87070; 89190; 92526; 92610; 92950; 93005; 93306; 93922; 93970; 94002; 94003; 94770; 96361; 96374; 96375; 97116; 97161; 97530; 99291-25

== ENCOUNTER 2019-02-28 11:56 | Emergency (ER) | payer OTHER, MEDICAID ==
[2019-02-28] MEDS: ACETAMINOPHEN 500 MG TAB PO (13:12)
[2019-02-28] MEDS: ONDANSETRON (ODT) 4 MG TAB ODT (13:12)
== END 2019-02-28 14:24 | disposition home or self-care (01) ==
LOC: FTE 14:24
DX: B34.9 Viral infection, unspecified (principal); I10 Essential (primary) hypertension; E11.9 Type 2 diabetes mellitus without complications; Z79.4 Long term (current) use of insulin; Z87.891 Personal history of nicotine dependence
CPT/HCPCS: 93005; 99283-25

== ENCOUNTER 2019-04-25 18:49 | Inpatient (IN) | payer OTHER, MEDICAID ==
[2019-04-25 19:22] LABS: ADD MAN DIFF? NO
[2019-04-25 19:28] LABS: WHITE BLOOD COUNT 14.7 10^3/ul (4.8-10.8)
[2019-04-25 19:28] LABS: BASOPHILS % 0.2 % (0.0-2.0); EOSINOPHILS # 0.1 10^3/ul (0.0-0.5); EOSINOPHILS % 0.7 % (0.0-7.0); HEMATOCRIT 25.7 % (42.0-52.0); HEMOGLOBIN 8.4 g/dl (14.0-18.0); LYMPHOCYTES # 1.8 10^3/ul (0.8-2.9); MEAN CORPUSCULAR HEMOGLOBIN 28.3 pg (29.0-33.0); MEAN CORPUSCULAR HGB CONC 32.7 g/dl (32.0-37.0); MEAN CORPUSCULAR VOLUME 86.5 fl (82.0-101.0); MEAN PLATELET VOLUME 10.8 fl (7.4-10.4); MONOCYTE # 1.1 10^3/ul (0.3-0.9); MONOCYTES % 7.5 % (0.0-11.0); NEUTROPHIL # 11.6 10^3/ul (1.6-7.5); NEUTROPHILS % 78.9 % (39.0-77.0); PLATELET COUNT 174 10^3/UL (140-415); POSITIVE DIFF @See below; RED BLOOD COUNT 2.97 10^6/ul (4.70-6.10); RED CELL DISTRIBUTION WIDTH 14.9 % (11.5-14.5)
[2019-04-25 19:34] LABS: ADD UMIC YES; UR ASCORBIC ACID NEGATIVE (NEGATIVE); UR BACTERIA FEW /HPF (NONE SEEN); UR BILIRUBIN (Dip) NEGATIVE (NEGATIVE); UR BLOOD (Dip) 2+ mg/dL (NEGATIVE); UR CLARITY SLIGHTLY CLOUDY (CLEAR); UR COLOR YELLOW (YELLOW); UR GLUCOSE (Dip) NEGATIVE (NEGATIVE); UR KETONES (Dip) NEGATIVE (NEGATIVE); UR LEUKOCYTE ESTERASE (Dip) 3+ Leu/ul (NEGATIVE); UR NITRITE (Dip) NEGATIVE (NEGATIVE); UR RBC 9 /HPF (0-5); UR TOTAL PROTEIN (Dip) 2+ mg/dl (NEGATIVE); UR UROBILINOGEN (Dip) NEGATIVE (NEGATIVE); UR WBC > 182 /HPF (0-5)
[2019-04-25] MEDS: SOD CHLORIDE 0.9% 500 ML IV (19:35)
[2019-04-25] MEDS: ONDANSETRON 4 MG INJ IV (19:35)
[2019-04-25] MEDS: IBUPROFEN 600 MG TAB PO (19:35)
[2019-04-25] MEDS: CEFTRIAXONE 1 GM/50 ML (PMX) 50 ML IVPB (19:36)
[2019-04-25 19:41] LABS: ALANINE AMINOTRANSFERASE 15 IU/L (13-69); ALBUMIN 3.6 g/dl (3.3-4.9); ALBUMIN/GLOBULIN RATIO 0.92; ALKALINE PHOSPHATASE 95 IU/L (42-121); ANION GAP 12 (5-13); ASPARTATE AMINO TRANSFERASE 10 IU/L (15-46); BILIRUBIN,INDIRECT 0.6 mg/dl (0-1.1); BILIRUBIN,TOTAL 0.6 mg/dl (0.2-1.3); BLOOD UREA NITROGEN 39 mg/dl (7-20); CALCIUM 8.5 mg/dl (8.4-10.2); CARBON DIOXIDE 20 mmol/L (21-31); CHLORIDE 101 mmol/L (97-110); Estimated GFR 19 mL/min (>60); GLUCOSE 183 mg/dl (70-220); LIPASE 44 U/L (23-300); POTASSIUM 4.8 mmol/L (3.5-5.1); SODIUM 133 mmol/L (135-144); TOTAL PROTEIN 7.5 g/dl (6.1-8.1)
[2019-04-25] MEDS ORDERED: HYDROCODONE/APAP (5/325) TAB PO ×2 (22:30)
[2019-04-25] MEDS ORDERED: PROMETHAZINE/DM (CUP) PO (22:30)
[2019-04-25] MEDS ORDERED: NACL 0.9% 3 ML SYG IV (22:30)
[2019-04-25] MEDS ORDERED: ALBUTEROL/IPRATROPIUM (NEB) 3 ML AMP HHN (22:30)
[2019-04-25] MEDS ORDERED: ONDANSETRON 4 MG INJ IV (22:30)
[2019-04-25] MEDS ORDERED: ACETAMINOPHEN 325 MG TAB PO (22:30)
[2019-04-25] MEDS: SOD CHLORIDE 0.9% 1,000 ML IV (23:44)
[2019-04-25] MEDS ORDERED: GLUCAGON 1 MG INJ IM (23:45)
[2019-04-25] MEDS ORDERED: DEXTROSE 50% 50 ML SYRINGE IV ×2 (23:45)
[2019-04-25] MEDS ORDERED: GLUCOSE GEL 15 GRAM TUBE BUCCAL (23:45)
[2019-04-25] MEDS ORDERED: GLUCOSE GEL 15 GRAM TUBE PO ×2 (23:45)
[2019-04-26] MEDS: ACCU-CHEK XX (01:11)
[2019-04-26 06:05] LABS: ADD MAN DIFF? NO
[2019-04-26 06:20] LABS: BASOPHILS % 0.2 % (0.0-2.0); EOSINOPHILS # 0.2 10^3/ul (0.0-0.5); HEMATOCRIT 23.9 % (42.0-52.0); HEMOGLOBIN 7.9 g/dl (14.0-18.0); LYMPHOCYTES # 1.9 10^3/ul (0.8-2.9); LYMPHOCYTES % 18.4 % (15.0-51.0); MEAN CORPUSCULAR HEMOGLOBIN 28.1 pg (29.0-33.0); MEAN CORPUSCULAR HGB CONC 33.1 g/dl (32.0-37.0); MEAN CORPUSCULAR VOLUME 85.1 fl (82.0-101.0); MEAN PLATELET VOLUME 10.9 fl (7.4-10.4); MONOCYTE # 0.9 10^3/ul (0.3-0.9); MONOCYTES % 8.7 % (0.0-11.0); NEUTROPHIL # 7.1 10^3/ul (1.6-7.5); NEUTROPHILS % 70.3 % (39.0-77.0); PLATELET COUNT 173 10^3/UL (140-415); RED BLOOD COUNT 2.81 10^6/ul (4.70-6.10); RED CELL DISTRIBUTION WIDTH 14.8 % (11.5-14.5)
[2019-04-26 06:20] LABS: WHITE BLOOD COUNT 10.1 10^3/ul (4.8-10.8)
[2019-04-26 06:32] LABS: HEMOGLOBIN A1C 6.6 % (0-5.9)
[2019-04-26 06:39] LABS: ALANINE AMINOTRANSFERASE 13 IU/L (13-69); ALBUMIN/GLOBULIN RATIO 0.85; ALKALINE PHOSPHATASE 85 IU/L (42-121); ANION GAP 11 (5-13); ASPARTATE AMINO TRANSFERASE 10 IU/L (15-46); BILIRUBIN,INDIRECT 0.4 mg/dl (0-1.1); BILIRUBIN,TOTAL 0.4 mg/dl (0.2-1.3); BLOOD UREA NITROGEN 39 mg/dl (7-20); CALCIUM 8.5 mg/dl (8.4-10.2); CARBON DIOXIDE 22 mmol/L (21-31); CHLORIDE 105 mmol/L (97-110); CHOL/HDL RATIO 4.4 RATIO; CHOLESTEROL 93 mg/dl (100-200); CREATININE 3.35 mg/dl (0.61-1.24); Estimated GFR 19 mL/min (>60); GLUCOSE 74 mg/dl (70-220); HDL CHOLESTEROL 21 mg/dl (30-78); LDL CHOLESTEROL,CALCULATED 52 mg/dl; MAGNESIUM 2.1 mg/dl (1.7-2.5); PHOSPHORUS 4.5 mg/dl (2.5-4.9); POTASSIUM 4.3 mmol/L (3.5-5.1); SODIUM 138 mmol/L (135-144); TOTAL PROTEIN 6.5 g/dl (6.1-8.1); TRIGLYCERIDES 102 mg/dl (0-149)
[2019-04-26] MEDS: INSULIN ASPART [NOVOLOG] 3 ML PEN SC ×5 (08:00→20:57)
[2019-04-26] MEDS: CEFTRIAXONE 1 GM/50 ML (PMX) 50 ML IVPB (08:53)
[2019-04-26] MEDS: DOCUSATE SODIUM 100 MG CAP PO ×2 (08:53→20:56)
[2019-04-26] MEDS: FERROUS SULFATE (EC) 325 MG TAB PO ×2 (08:53→20:57)
[2019-04-26] MEDS: LINAGLIPTIN 5 MG TABLET PO (08:54)
[2019-04-26] MEDS: NIFEdipine (XL) 30 MG TAB PO ×2 (08:54→20:57)
[2019-04-26] MEDS: ALLOPURINOL 100 MG TAB PO (08:54)
[2019-04-26] MEDS: APIXABAN 5 MG TABLET PO ×2 (08:54→20:57)
[2019-04-26] MEDS: SOD CHLORIDE 0.9% 1,000 ML IV ×2 (11:39→15:35)
[2019-04-26] MEDS: ATORVASTATIN 20 MG TAB PO (20:56)
[2019-04-26] MEDS: FAMOTIDINE 20 MG TAB PO (20:56)
[2019-04-26] MEDS: TAMSULOSIN (SR) 0.4 MG CAP PO (20:57)
[2019-04-26] MEDS: INSULIN GLARGINE [LANTus] (100 UNITS/ML) SYG SC (21:02)
[2019-04-27] MEDS: ACCU-CHEK XX (02:00)
[2019-04-27 05:41] LABS: ADD MAN DIFF? NO
[2019-04-27 05:47] LABS: WHITE BLOOD COUNT 9.1 10^3/ul (4.8-10.8)
[2019-04-27 05:47] LABS: BASOPHILS % 0.1 % (0.0-2.0); EOSINOPHILS # 0.2 10^3/ul (0.0-0.5); EOSINOPHILS % 1.9 % (0.0-7.0); HEMATOCRIT 23.1 % (42.0-52.0); HEMOGLOBIN 7.8 g/dl (14.0-18.0); LYMPHOCYTES # 1.5 10^3/ul (0.8-2.9); LYMPHOCYTES % 16.5 % (15.0-51.0); MEAN CORPUSCULAR HEMOGLOBIN 28.8 pg (29.0-33.0); MEAN CORPUSCULAR HGB CONC 33.8 g/dl (32.0-37.0); MEAN CORPUSCULAR VOLUME 85.2 fl (82.0-101.0); MEAN PLATELET VOLUME 11.2 fl (7.4-10.4); MONOCYTE # 0.7 10^3/ul (0.3-0.9); MONOCYTES % 7.3 % (0.0-11.0); NEUTROPHIL # 6.7 10^3/ul (1.6-7.5); NEUTROPHILS % 73.7 % (39.0-77.0); PLATELET COUNT 173 10^3/UL (140-415); RED BLOOD COUNT 2.71 10^6/ul (4.70-6.10); RED CELL DISTRIBUTION WIDTH 14.5 % (11.5-14.5)
[2019-04-27] MEDS: SOD CHLORIDE 0.9% 1,000 ML IV ×2 (06:16→14:19)
[2019-04-27 06:19] LABS: ANION GAP 10 (5-13); BLOOD UREA NITROGEN 44 mg/dl (7-20); CALCIUM 8.3 mg/dl (8.4-10.2); CARBON DIOXIDE 20 mmol/L (21-31); CHLORIDE 108 mmol/L (97-110); Estimated GFR 18 mL/min (>60); GLUCOSE 112 mg/dl (70-220); SODIUM 138 mmol/L (135-144)
[2019-04-27] MEDS: INSULIN ASPART [NOVOLOG] 3 ML PEN SC ×4 (08:00→21:00)
[2019-04-27] MEDS: CEFTRIAXONE 1 GM/50 ML (PMX) 50 ML IVPB (08:20)
[2019-04-27] MEDS: ALLOPURINOL 100 MG TAB PO (08:22)
[2019-04-27] MEDS: APIXABAN 5 MG TABLET PO ×2 (08:24→21:14)
[2019-04-27] MEDS: DOCUSATE SODIUM 100 MG CAP PO ×2 (08:25→21:14)
[2019-04-27] MEDS: LINAGLIPTIN 5 MG TABLET PO (08:25)
[2019-04-27] MEDS: FERROUS SULFATE (EC) 325 MG TAB PO ×2 (08:25→21:14)
[2019-04-27] MEDS: NIFEdipine (XL) 30 MG TAB PO ×2 (08:41→21:14)
[2019-04-27] MEDS ORDERED: LIDOCAINE 1% (MPF) 5 ML VIAL SC (09:00)
[2019-04-27] MEDS: MEROPENEM 500MG/50 ML (PMX) 50 ML IVPB ×2 (11:00→21:29)
[2019-04-27] MEDS: INSULIN GLARGINE [LANTus] (100 UNITS/ML) SYG SC (21:13)
[2019-04-27] MEDS: FAMOTIDINE 20 MG TAB PO (21:13)
[2019-04-27] MEDS: ATORVASTATIN 20 MG TAB PO (21:14)
[2019-04-27] MEDS: TAMSULOSIN (SR) 0.4 MG CAP PO (21:14)
[2019-04-28] MEDS: SOD CHLORIDE 0.9% 1,000 ML IV (01:53)
[2019-04-28] MEDS: ACCU-CHEK XX (01:55)
[2019-04-28] MEDS: INSULIN ASPART [NOVOLOG] 3 ML PEN SC ×2 (08:00→13:11)
[2019-04-28] MEDS: MEROPENEM 500MG/50 ML (PMX) 50 ML IVPB (08:55)
[2019-04-28] MEDS: ALLOPURINOL 100 MG TAB PO (08:56)
[2019-04-28] MEDS: APIXABAN 5 MG TABLET PO (08:56)
[2019-04-28] MEDS: LINAGLIPTIN 5 MG TABLET PO (08:56)
[2019-04-28] MEDS: FERROUS SULFATE (EC) 325 MG TAB PO (08:56)
[2019-04-28] MEDS: DOCUSATE SODIUM 100 MG CAP PO (08:56)
[2019-04-28] MEDS: NIFEdipine (XL) 30 MG TAB PO (08:57)
[2019-04-28] MEDS: POLYETHYLENE GLYCOL 17 GM PACKET PO (15:44)
== END 2019-04-28 15:55 | disposition home health service (06) | DRG 871 ==
LOC: E/R 18:49 → 2NE 20:01
PROC: 02HV33Z Insertion of Infusion Device into Superior Vena Cava, Percutaneous Approach (ICD-10-PCS; principal; 2019-04-27)
DX: A41.9 Sepsis, unspecified organism (principal); N17.0 Acute kidney failure with tubular necrosis; N39.0 Urinary tract infection, site not specified; I13.0 Hypertensive heart and chronic kidney disease with heart failure and stage 1 through stage 4 chronic kidney disease, or unspecified chronic kidney disease; N18.4 Chronic kidney disease, stage 4 (severe); I50.30 Unspecified diastolic (congestive) heart failure; E11.22 Type 2 diabetes mellitus with diabetic chronic kidney disease; Z86.74 Personal history of sudden cardiac arrest; B96.89 Other specified bacterial agents as the cause of diseases classified elsewhere; Z16.12 Extended spectrum beta lactamase (ESBL) resistance; Z79.02 Long term (current) use of antithrombotics/antiplatelets; E86.0 Dehydration; N40.0 Benign prostatic hyperplasia without lower urinary tract symptoms
CPT/HCPCS: 36415; 36569; 71045; 74176; 76937; 80048; 80053; 80061; 81001; 82962; 83036; 83690; 83735; 84100; 85025; 87040-91; 87086; 96374; 96375; 99285-25